=== PATIENT | female | born 1955 | race Caucasian/White ===

== ENCOUNTER → 2017-05-19 | Outpatient (CLI) | payer OTHER ==
[~2017-05-19] MED LIST: CELE10TA PO; COUM10TA PO; COUM2.5T17 PO; FERR325T3 PO; ISOS30TAB PO; PERC5TAB12 PO; RANO5TAB PO
[2017-05-19 10:54] LABS: MEAN CORPUSCULAR HEMOGLOBIN 31.3 pg (27.0-33.0); MEAN CORPUSCULAR HGB CONC 34.9 g/dl (32.0-36.5); MEAN CORPUSCULAR VOLUME 89.7 fl (80.0-96.0); RED CELL DISTRIBUTION WIDTH 12.3 % (11.5-14.5); WHITE BLOOD COUNT 3.9 K/mm3 (4.0-10.0)
[2017-05-19 10:59] LABS: INR 0.98
[2017-05-19 11:33] LABS: ALBUMIN 3.9 GM/DL (3.2-5.2); ALBUMIN/GLOBULIN RATIO 1.11 (1.00-1.93); ALKALINE PHOSPHATASE 89 U/L (45-117); ALT/SGPT 22 U/L (12-78); ANION GAP 5 MEQ/L (8-16); AST/SGOT 10 U/L (15-37); BILIRUBIN,TOTAL 0.4 MG/DL (0.2-1.0); BLOOD UREA NITROGEN 12 MG/DL (7-18); CALCIUM LEVEL 9.1 MG/DL (8.8-10.2); CARBON DIOXIDE LEVEL 31 MEQ/L (21-32); CHLORIDE LEVEL 106 MEQ/L (98-107); CREATININE FOR GFR 0.85 MG/DL (0.55-1.02); GLOMERULAR FILTRATION RATE > 60.0 (>45); GLUCOSE, FASTING 88 MG/DL (80-110); POTASSIUM SERUM 4.1 MEQ/L (3.5-5.1); SODIUM LEVEL 142 MEQ/L (136-145); TOTAL PROTEIN 7.4 GM/DL (6.4-8.2)
--- NOTE | 2017-05-19 16:11 | ECGEPIP ---
Stationary ECG Study [facility] Test Date: 2017-05-19 Pat Name: PHAN JAMES Department: Room: - Gender: F [employer] Supervisor: FRANKIE : 1955 Requested By: Gabriel Ramos Order Number: [id number] Reading MD: Mich Onofre Measurements Intervals [place] Rate: 44 P: 71 [place]: 141 QRS: 21 QRSD: 97 T: 30 QT: 477 QTc: 411 Interpretive Statements SINUS BRADYCARDIA MODERATE T-WAVE ABNORMALITY, CONSIDER ANTERIOR ISCHEMIA Low QRS complex voltage in the limb leads Similar to tracing done 07-07-15 with even lower rate Electronically Signed On 05-19-2017 16:11:40 EDT by Mich Onofre
--- NOTE | 2017-05-20 02:40 | REP ---
Clinical: Chest and epigastric pain with history of heart disease and gastritis . Comparison: 11/26/2014 . Technique: PA and lateral. Findings: The mediastinum and cardiac silhouette are normal. The lung frye are clear and without acute consolidation, effusion, or pneumothorax. The skeletal structures are intact and normal. Impression: 1. No acute cardiopulmonary process. Signed by Suresh Hwang MD 05/20/2017 02:32 A
== END ==
LOC: M ADMPAT 09:20
PROVIDERS: ATTEND Orthopaedic Surgery
DX: M17.11 Unilateral primary osteoarthritis, right knee (principal)

== ENCOUNTER 2017-06-02 07:08 | Inpatient (IN) | payer OTHER ==
[2017-05-19 09:56] VITALS: BP 142/80
--- NOTE | 2017-05-29 09:54 | HPE ---
DATE OF ADMISSION: 06/02/2017 ADMISSION DIAGNOSIS: Osteoarthritis right knee. ATTENDING PHYSICIAN: Dr. Duarte HISTORY: This is a pleasant 62-year-old female patient with progressively worsening right knee pain and stiffness. She failed to improve with conservative management. She has pain with weightbearing activities and activities of daily living. She has elected for surgery for continued symptoms. She has consented for a right total knee arthroplasty by Dr. Duarte. Medical optimization by Dr. Montero. X-rays notable for end-stage degenerative changes of the right knee. ALLERGIES: - KEFLEX - DARVON MEDICAL HISTORY (Includes): 1. Depression. 2. Allergic rhinitis. 3. Gastric reflux disease. 4. Osteoporosis. 5. Angina. 6. Osteoarthritis of both knees. PAST SURGICAL HISTORY (Includes): 1. Cardiac cath with stent placement. 2. Total hysterectomy. 3. Gallbladder removed. 4. Appendix removed. SOCIAL HISTORY: She does not smoke. She does not use alcohol. FAMILY HISTORY: Noncontributory. REVIEW OF SYSTEMS: Denies fever or chills. Denies chest pain, shortness breath or cough. Denies difficulty breathing. Denies abdominal pain. Denies nausea or vomiting. Notes persistent pain in her right knee with weightbearing activities and activities of daily living. PHYSICAL EXAMINATION: Reveals a well-nourished, well-developed, alert female patient. She walks with a slight limping gait favoring her right side. She does not use assistive devices. Exam of the right knee reveals the skin to be intact. No erythema, edema or ecchymosis. Irritability with knee range of motion on the right side. There is tenderness mainly medially. Patellar grind is irritable. The calf is soft and nontender to palpation. She can sensate light touch. Straight leg raise testing is negative. Neck is supple without adenopathy or jugular venous distention (JVD). Lungs are clear to auscultation without rales or wheeze. Heart: Rhythm regular rate and rhythm. Abdomen: Bowel sounds are present. Current Vital Signs: Weight 169 pounds, height 61 inches, temperature 98.2, pulse 48, respirations 12, blood pressure 130/80. CURRENT MEDICATIONS: - isosorbide dinitrate 30 mg 1 tablet once per day - Ranexa 500 mg 1 tablet twice per day - Citalopram 60 mg 1 tablet once per day LABORATORY DATA: Chest x-ray with no acute cardiopulmonary process noted. EKG sinus bradycardia. PT 13.1, INR 0.98, glucose 88, BUN 12, creatinine 0.85, sodium 142, potassium 4.1, WBC count 3.9, RBC count 4.4, hemoglobin 13.9, hematocrit 39.9. Urinalysis within normal limits. Urine culture no growth. Nasal sinus culture normal miguel. IMPRESSION: Symptomatic osteoarthritis of the right knee. PLAN: Consented for right total knee arthroplasty by Dr. Duarte.
[~2017-06-02] VITALS: Ht 154.9 cm; Wt 74.8 kg
[2017-06-02] VITALS (7 sets, daily range): BP systolic 136–148; BP diastolic 65–75
[~2017-06-02 07:08] MED LIST changes: -COUM10TA PO; -COUM2.5T17 PO; -FERR325T3 PO; -PERC5TAB12 PO
[2017-06-02] MEDS ORDERED: CLINDAMYCIN 600 MG in APPROPRIATE DILUENT 1 EA IV ONE (07:15)
[2017-06-02] MEDS ORDERED: LIDOCAINE 1% MDV 20ML VIAL SQ ONE (07:15)
[2017-06-02] MEDS ORDERED: VANCOMYCIN HCL 1,000 MG, VIAL MATE ADAPTER 1 EACH in D5W 250 ML IV ONE ×2 (07:15→20:00)
[2017-06-02] MEDS ORDERED: LR 1,000 ML IV ONE (07:15)
[2017-06-02] MEDS ORDERED: PREGABALIN 75 MG CAP(LYRICA) PO ONE (07:30)
[2017-06-02] MEDS ORDERED: CelecoXIB 400 MG CAP PO ONE (07:30)
[2017-06-02] MEDS ORDERED: PERCOCET 5MG/325MG TAB PO ONE (07:30)
[2017-06-02] MEDS ORDERED: COUM10TA PO (08:00)
[2017-06-02] MEDS ORDERED: dexameTHASONE 4 MG/ML 1ML VIAL (J1100) As Ordered ONE (09:22)
[2017-06-02] MEDS ORDERED: PROPOFOL 200 MG/20 ML VIAL As Ordered ONE (09:22)
[2017-06-02] MEDS ORDERED: ONDANSETRON 4MG/2ML VIAL (J2405) As Ordered ONE ×2 (09:22→12:56)
[2017-06-02] MEDS ORDERED: LIDOCAINE 2% INJ 100 MG/5 ML SDV (FOR ANES.) As Ordered ONE (09:22)
[2017-06-02] MEDS ORDERED: MIDAZOLAM INJ 2 MG/2 ML VIAL (J2250) As Ordered ONE ×3 (09:23→11:47)
[2017-06-02] MEDS ORDERED: fentaNYL 100 MCG/2 ML INJECTION (J3010) As Ordered ONE ×2 (09:23→09:29)
[2017-06-02] MEDS ORDERED: MIDAZOLAM INJ 2 MG/2 ML VIAL (J2250) IV ONE (10:15)
[2017-06-02] MEDS ORDERED: fentaNYL 100 MCG/2 ML INJECTION (J3010) IV ONE (10:15)
[2017-06-02] MEDS ORDERED: TRANEXAMIC ACID 100 MG/ML 10ML VIAL As Ordered ONE (11:03)
[2017-06-02] MEDS ORDERED: BUPIVACAINE/EPIN 0.25% 30 ML VIAL As Ordered ONE (11:03)
[2017-06-02] MEDS ORDERED: CLINDAMYCIN 900 MG/50 ML PREMIX BAG As Ordered ONE (11:03)
[2017-06-02] MEDS ORDERED: BUPIVACAINE LIPOSOME/PF 1.3% 20 ML VIAL (13.3MG/ML)(EXPAREL) As Ordered ONE (11:04)
[2017-06-02] MEDS ORDERED: EPINEPHrine INJ 1 MG/ML 1ML AMP As Ordered ONE (11:04)
[2017-06-02] MEDS ORDERED: GLYCOPYRROLATE INJ 0.2 MG/ML 2 ML VIAL As Ordered ONE (11:40)
[2017-06-02] MEDS ORDERED: ePHEDrine SULFATE 25 MG/5 ML(5MG/ML) SYRINGE As Ordered ONE (11:57)
[2017-06-02] MEDS ORDERED: ROPIvacaine 0.5% 30 ML INJECTION (J2795) ONE (13:27)
[2017-06-02] MEDS ORDERED: dexameTHASONE 10 MG/1 ML VIAL PRES.FREE (J1100) ONE (13:27)
[2017-06-02] MEDS ORDERED: fentaNYL 100 MCG/2 ML INJECTION (J3010) IV PRN (14:00)
[2017-06-02] MEDS: D5W/0.45% SODIUM CHLORIDE 1,000 ML IV SCH (14:00)
[2017-06-02] MEDS ORDERED: LR 1,000 ML IV SCH (14:00)
[2017-06-02] MEDS ORDERED: PERCOCET 5MG/325MG TAB PO PRN (14:15)
[2017-06-02] MEDS ORDERED: ACETAMINOPHEN TAB 650MG DOSE (2X325MG) PO PRN (14:15)
[2017-06-02] MEDS ORDERED: FLEET ENEMA PR PRN (14:15)
[2017-06-02] MEDS ORDERED: NORTRIPTYLINE 10 MG CAP PO PRN (14:15)
[2017-06-02] MEDS ORDERED: HYDROmorphone HCL 1 MG/ML SYRINGE (J1170) IV PRN ×2 (14:30)
[2017-06-02] MEDS ORDERED: CYCLOBENZAPRINE 10 MG TAB PO PRN (14:30)
--- NOTE | 2017-06-02 15:11 | CR ---
DATE OF CONSULTATION: 06/02/2017 This is a 62-year-old female status post right knee surgery by Dr. Duarte and hospitalist is consulted for medical management. HISTORY OF PRESENT ILLNESS: This is a 62-year-old female with a significant past medical history of coronary artery disease, angina, depression, gastroesophageal reflux disease (GERD), osteoporosis, rhinitis, who is status post right knee surgery by Dr. Duarte and hospitalist was consulted for medical management. The patient is resting comfortably in the postanesthesia care unit. Denies any nausea, shortness of breath, dizziness, chest pain, or any complaints. Tolerable pain. The patient states that she is supposed to be on baby aspirin but she does not take it. She was also to be on Coumadin, but has been off due to the surgical intervention. She was on reflux medicine, but that has been stopped and tried dietary changes, but feels that she may have to go back on medication. Otherwise, the patient denies any complaints or issues, resting comfortably in the PACU. REVIEW OF SYSTEMS: Ten-point review of systems negative other than those described in history of present illness. PAST MEDICAL HISTORY: Significant for: 1. Coronary artery disease. 2. Angina. 3. Depression. 4. Gastroesophageal reflux disease (GERD). 5. Osteoporosis. 6. Rhinitis. SURGICAL HISTORY: Includes: 1. Cholecystectomy. 2. Stomach vestibule, status post mesh repair. 3. Partial hysterectomy. 4. Tubal ligation. 5. Abdominal abscess times two, status post surgical intervention. 6. Appendectomy. 7. Bilateral knee surgery in the past. 8. Shoulder surgery in the past. SOCIAL HISTORY: The patient denies smoking, drinking or drug abuse. FAMILY MEDICAL HISTORY: Noncontributory due to the patient's age. ALLERGIES: KEFLEX, CEPHALOSPORIN, PROPOXYPHENE. MEDICATIONS: From home are as follows, it is listed that she takes: - Celexa 60 mg by mouth daily - isosorbide dinitrate 40 mg by mouth daily - Ranexa 500 mg by mouth daily - warfarin 10 mg, but that was stopped due to the surgery - aspirin, the patient does take 81 mg once a day but that has been stopped as well but is not listed PHYSICAL EXAMINATION: VITAL SIGNS: Temperature 97.6, heart rate of 66, respiratory rate of 18, blood pressure 148/72, saturating 95% on room air. HEENT: Normocephalic. No trauma. Inspection of the eyes, nose and throat normal. Pupils equal, round, and reactive to light and accommodation. Mucous moist. Neck is supple with no tracheal deviation. CARDIAC SLOAN: S1, S2. Regular rate and rhythm. Pulses present. LUNGS: Equal air entry. I did not hear any wheezes, rales or rhonchi. ABDOMEN: Soft, nontender. Bowel sounds present. EXTREMITIES: Lower extremities with sequential compression device (SCD) bilaterally. The patient is currently awake, alert, oriented times three. Cranial nerves grossly intact. Motor and sensory intact without limitation after surgery. The patient has normal mood and affect for current situation. Pleasant to speak to. DIAGNOSTIC STUDIES: The patient had blood work done on 05/16/2017 showing WBC of 3.9, hemoglobin and hematocrit within normal, platelet count is within normal. Complete metabolic profile is within normal except for AST of 10, cardiac enzymes within normal as well. TSH was within normal. Cholesterol studies within normal. Her vitamin D 25 OH was slightly low at 29.6. We will defer this to her primary care provider as an outpatient. Coagulation study at that time was all within normal but elevated D-dimer in 2009. The patient did have a V/Q scan in 2013, which was negative for pulmonary embolism. UA at that time, nitrate was negative, leukocyte esterase was negative, WBC was only 1, urine bacteria was 1. I suspect not symptomatic. The patient also had chest x-ray on 05/19/2017 of this year, which showed, as per radiology: No acute cardiopulmonary process. Coagulation studies: PT/INR is within normal on 05/19/2017, but the D-dimer was from 2009 and the patient had been evaluated by a V/Q scan in 2013 at the latest, which did not show any pulmonary embolism. ASSESSMENT AND PLAN: This is a 62-year-old female with a significant past medical history of coronary artery disease, angina, depression, gastroesophageal reflux disease (GERD), osteoporosis, and rhinitis who presents status post right knee surgery by Dr. Duarte. Hospitalist was consulted for medical management. 1. Right knee surgery by Dr. Duarte. Defer pain management and anticoagulant therapy to Dr. Duarte. 2. Coronary artery disease and angina. We will hold aspirin and Coumadin for now and defer reinitiation to Dr. Duarte and her primary care provider. In the interim, resume isosorbide and Ranexa. Denies any chest pain and is resting comfortably in the PACU at this time. 3. Depression. Resume Celexa. 4. History of GERD. The patient states that she is not on any antireflux medication and tried a diet, but may need to go back on medicine. We will initiate Protonix for now and defer further treatment to primary care provider. 5. The patient is resting comfortably, not tachycardic, not hypoxemic at this time. The patient had a positive D-dimer in 2009, but the last V/Q scan in 2013 was negative for pulmonary embolism. Again, the patient is not tachycardic, not hypoxemic. Continue to monitor. 6. Deep vein thrombosis (DVT) prophylaxis. As per surgery.
[2017-06-02] MEDS ORDERED: VECURONIUM BROMIDE 10 MG VIAL As Ordered ONE (15:26)
[2017-06-02] MEDS: CitaloPRAM (CeleXA) 20 MG TAB PO SCH (15:42)
[2017-06-02] MEDS: PANTOPRAZOLE 40MG TAB (PROTONIX) PO SCH (15:42)
[2017-06-02] MEDS: RANOLAZINE 500 MG ER TAB PO SCH (17:23)
[2017-06-02] MEDS: ISOSORBIDE DIN. (ISORDIL) 20 MG TAB PO SCH (17:23)
[2017-06-02] MEDS: PERCOCET 5MG/325MG TAB PO PRN (17:43)
[2017-06-02] MEDS: ONDANSETRON 4MG/2ML VIAL (J2405) IV PRN (17:43)
[2017-06-02] MEDS: ASCORBIC ACID 500 MG TAB PO SCH (19:46)
[2017-06-03] MEDS: D5W/0.45% SODIUM CHLORIDE 1,000 ML IV SCH
[2017-06-03] MEDS: ONDANSETRON 4MG/2ML VIAL (J2405) IV PRN (00:14)
[2017-06-03] MEDS ORDERED: FAMOTIDINE INJ 20MG/2ML VIAL (S0028) IVP ONE (00:30)
[2017-06-03] MEDS ORDERED: SUCRALFATE SUSP 1GM/10ML UD PO ONE (00:30)
[2017-06-03 01:45] LABS: MEAN CORPUSCULAR HEMOGLOBIN 30.9 pg (27.0-33.0); MEAN CORPUSCULAR HGB CONC 34.9 g/dl (32.0-36.5); MEAN CORPUSCULAR VOLUME 88.7 fl (80.0-96.0); RED CELL DISTRIBUTION WIDTH 12.2 % (11.5-14.5); WHITE BLOOD COUNT 7.8 K/mm3 (4.0-10.0)
[2017-06-03 02:00] VITALS: BP 126/63
[2017-06-03 02:11] LABS: ANION GAP 10 MEQ/L (8-16); BLOOD UREA NITROGEN 10 MG/DL (7-18); CALCIUM LEVEL 8.2 MG/DL (8.8-10.2); CARBON DIOXIDE LEVEL 25 MEQ/L (21-32); CHLORIDE LEVEL 103 MEQ/L (98-107); CREATININE FOR GFR 0.74 MG/DL (0.55-1.02); GLOMERULAR FILTRATION RATE > 60.0 (>45); GLUCOSE, FASTING 179 MG/DL (80-110); MAGNESIUM LEVEL 1.7 MG/DL (1.8-2.4); POTASSIUM SERUM 4.1 MEQ/L (3.5-5.1); SODIUM LEVEL 138 MEQ/L (136-145)
[2017-06-03] MEDS ORDERED: MAG SULF 1GM/100ML (MAG RUN) 1 GM in APPROPRIATE DILUENT 1 EA IV ONE (02:30)
[2017-06-03 06:00] VITALS: BP 117/57
[2017-06-03 06:59] LABS: INR 1.11
[2017-06-03 07:31] LABS: ANION GAP 10 MEQ/L (8-16); BLOOD UREA NITROGEN 11 MG/DL (7-18); CALCIUM LEVEL 8.1 MG/DL (8.8-10.2); CARBON DIOXIDE LEVEL 24 MEQ/L (21-32); CHLORIDE LEVEL 104 MEQ/L (98-107); CREATININE FOR GFR 0.66 MG/DL (0.55-1.02); FERRITIN 97 NG/ML (8-252); GLOMERULAR FILTRATION RATE > 60.0 (>45); GLUCOSE, FASTING 118 MG/DL (80-110); PERCENT SATURATION 18.8 % (13.2-45.0); POTASSIUM SERUM 4.4 MEQ/L (3.5-5.1); SODIUM LEVEL 138 MEQ/L (136-145); TOTAL IRON BINDING CAPACITY 234 UG/DL (250-450)
[2017-06-03 08:45] LABS: FOLATE 16.9 NG/ML (>5.4); VITAMIN B12 LEVEL 394 PG/ML (247-911)
--- NOTE | 2017-06-03 08:54 | RO ---
DATE OF PROCEDURE: 06/02/2017 PREOPERATIVE DIAGNOSIS: Right knee osteoarthritis. POSTOPERATIVE DIAGNOSIS: Right knee osteoarthritis. PROCEDURE PERFORMED: Right total knee replacement. SURGEON: Gabriel Duarte MD COMPILATION CLERK: CULLEN John ANESTHESIA: Spinal also block. ESTIMATED BLOOD LOSS : Less than 60. COMPLICATIONS: No complications. TOURNIQUET TIME: Tourniquet was utilized. Total tourniquet time 65 minutes at 250 mmHg. INDICATIONS: Progressive discomfort in the knee of a 62-year-old female with MRI, as well as plain film evidence of degenerative change through the knee. She has elected for operative intervention. Consent reviewed in detail, including alyson discussion of the pathology involved, procedure proposed, alternatives including doing nothing and risks including not limited to pain, failure, incomplete relief, need for more surgery, bleeding, blood clots, infection and other issues. The patient agrees to proceed. DESCRIPTION OF PROCEDURE: Identified in the holding area, site and side verified, brought to the operating room after the femoral block accomplished. In the operating room, she received spinal anesthesia and then was positioned for exposure of the right lower extremity for knee arthroplasty. Next, she was sterilely prepped and draped in the usual fashion for a knee replacement. We utilized sterile technique. Next, the right extremity was elevated, the tourniquet was inflated to 250 mmHg. Next, line of the incision had been outlined with a marking pen and infiltrated with 0.25% Marcaine with epinephrine. We then made the incision with the 10 blade knife, developed down through skin and subcuticular tissues to the extensor mechanism. Next, Mr. Segundo assisted in retraction. The arthrotomy was made with a 10 blade knife, a fresh knife. Next, the medial release was accomplished using the sharp knife. Infrapatellar fat pad was removed using a sharp knife and supracondylar soft tissue was removed to allow for side using the sharp knife. Next, the patella was able to be everted. The knee was flexed. The femoral canal was opened using the canal opening reamer and then the intramedullary guide was installed 10 mm at 5 degrees valgus. Next, once this was pinned into place, I placed the appropriate Hohmann retractors and Mr. Segundo used the oscillating saw to make the distal femoral cut. Next, I then placed the AP sizing guide, pinned at 3 degrees and we sized a 2.5 femoral component as template. Next, the 4 in 1 block was then pinned to the knee, and we made the anterior. posterior and chamfer cuts. Mr. Segundo assisted in protecting the collateral ligaments using the Hohmann. Next, bone debris was cleared. Posterior condylar area, we utilized and a curved osteotome to remove additional osteophyte material, especially posterior to the lateral femoral condyle. Next, attention was then turned to the tibial side of the knee. Extramedullary tibial alignment jig was secured based on the second metatarsal and the ankle joint. 3 degree block utilized, 4 mm off the medial side, jig was pinned into place. We verified alignment using the drop libby. Next, we then placed the posterior retractor and the Hohmann retractors, and I utilized the oscillating saw to make the tibial cut. Next, once this was accomplished, the knee was extended, and Mr. Segundo assisted installing the spacer block 10 mm, which fit appropriately in extension and the flexion block also fit appropriately in flexion. Next, once this was accomplished, we installed the femoral component and the tibial component with the 10 mm trial, placed through a range of motion and we marked rotational alignment of tibial component. Patella everted. Posterior patella cut made. We utilized a 32 mm button, which was drilled as well. The button tracked appropriately. Next, once this was accomplished, femoral posts were drilled in the medial and lateral femoral condyle through the guide. The trial components were then removed. Next, we subluxed the tibia anteriorly, placed the tibial alignment jig in the appropriate rotation, pinned it into place. We then placed the broach utilized the large set drill, followed by the tibial broach, which was tamped into place. Next, we then removed these components. Mr. Segundo stepped to the back table to prepare the cement. I utilized pulse lavage to prepare the knee surfaces, which were then dried. Next, once that Mr. Segundo placed cement on the posterior aspect of the femoral condyles, I then took the cement and placed cement on the tibial surface and implanted the tibial tray non trial component, cleared excess cement, implanted the nylon component 10 mm x 2.5 spacer. Next, we then placed cement on the distal femur and implanted the non trial femoral component. Excess cement cleared using curettes. Next, posterior patella was everted. Non trial patella was then cemented into place secured with clamp. Excess cement removed using curettes. Next, pulse lavage was utilized and we also exposed the knee to the TXA solution for one minute. Next, I instilled approximately 20 mL of the Exparel solution in the subcutaneous space around knee, as well as around the extensor mechanism of the knee for long-acting postoperative anesthetic. Next, pulse lavage again utilized. Next, once the cement had hardened to the appropriate consistency, patella clamp removed, arthrotomy was closed with interrupted stitch followed by running Stratafix stitch. Next, interrupted subcuticular stitches were then placed at the dermis level, followed by placement of the Prineo dressing. Next, please note that patella tracking was assessed at the time of the surgery. Patella tracking was adequate. Next, the tourniquet was inflated 65 minutes. Components used for this case include DePuy PFC System, cruciate sparing, 2.5 femoral component, 10 mm curved polyethylene component, fixed bearing, 2.5 tibial tray and 32 mm patella button, and the appropriate bone cement. Mr. Olegario Segundo was present and participated in the entirety case in the capacity of the first breaker feeder. LUDMILA
[2017-06-03] MEDS ORDERED: CelecoXIB (CeleBREX) 100 MG CAP PO ONE (09:00)
--- NOTE | 2017-06-03 09:47 | REP ---
AP/ LATERAL RIGHT KNEE, TWO VIEWS: HISTORY: Knee replacement. COMPARISON: 09/23/2012 The patient is status post right total knee replacement. There is no acute fracture or dislocation. A small amount of subcutaneous air is present in the overlying soft tissue. IMPRESSION: The patient is status post right total knee replacement. There is anatomic alignment. Signed by Gui Blanchard MD 06/03/2017 09:50 A
[2017-06-03 10:00] VITALS: BP 116/56
[2017-06-03] MEDS: SENOKOT S TAB PO SCH ×2 (10:40→20:15)
[2017-06-03] MEDS: CitaloPRAM (CeleXA) 20 MG TAB PO SCH (10:40)
[2017-06-03] MEDS: MIRALAX *UNIT DOSE* 17GM PACKET PO SCH (10:40)
[2017-06-03] MEDS: PANTOPRAZOLE 40MG TAB (PROTONIX) PO SCH (10:40)
[2017-06-03] MEDS: ASCORBIC ACID 500 MG TAB PO SCH ×2 (10:41→20:15)
[2017-06-03] MEDS: ISOSORBIDE DIN. (ISORDIL) 20 MG TAB PO SCH (10:41)
[2017-06-03] MEDS: RANOLAZINE 500 MG ER TAB PO SCH (10:41)
[2017-06-03] MEDS: PERCOCET 5MG/325MG TAB PO PRN ×3 (10:42→22:47)
[2017-06-03 14:00] VITALS: BP 90/59
[2017-06-03] MEDS ORDERED: WARFARIN SOD 5 MG TAB PO ONE (17:00)
[2017-06-03 22:00] VITALS: BP 110/54
[2017-06-04] MEDS: PERCOCET 5MG/325MG TAB PO PRN ×2 (05:16→09:59)
[2017-06-04 06:00] VITALS: BP 143/64
[2017-06-04] MEDS ORDERED: PERC5TAB12 PO (07:02)
[2017-06-04] MEDS ORDERED: COUM2.5T17 PO ×2 (07:02→08:18)
[2017-06-04 07:46] LABS: MEAN CORPUSCULAR HEMOGLOBIN 31.5 pg (27.0-33.0); MEAN CORPUSCULAR VOLUME 90.1 fl (80.0-96.0); RED CELL DISTRIBUTION WIDTH 12.5 % (11.5-14.5); WHITE BLOOD COUNT 5.3 K/mm3 (4.0-10.0)
[2017-06-04 07:54] LABS: ANION GAP 7 MEQ/L (8-16); BLOOD UREA NITROGEN 16 MG/DL (7-18); CALCIUM LEVEL 8.7 MG/DL (8.8-10.2); CARBON DIOXIDE LEVEL 28 MEQ/L (21-32); CHLORIDE LEVEL 106 MEQ/L (98-107); GLOMERULAR FILTRATION RATE > 60.0 (>45); GLUCOSE, FASTING 101 MG/DL (80-110); POTASSIUM SERUM 4.4 MEQ/L (3.5-5.1); SODIUM LEVEL 141 MEQ/L (136-145)
[2017-06-04 07:55] LABS: INR 1.02
[2017-06-04] MEDS ORDERED: CelecoXIB (CeleBREX) 100 MG CAP PO SCH (09:00)
[2017-06-04 09:57] VITALS: BP 143/64
[2017-06-04] MEDS: RANOLAZINE 500 MG ER TAB PO SCH (09:57)
[2017-06-04] MEDS: ISOSORBIDE DIN. (ISORDIL) 20 MG TAB PO SCH (09:57)
[2017-06-04] MEDS: SENOKOT S TAB PO SCH (09:58)
[2017-06-04] MEDS: PANTOPRAZOLE 40MG TAB (PROTONIX) PO SCH (09:58)
[2017-06-04] MEDS: ASCORBIC ACID 500 MG TAB PO SCH (09:58)
[2017-06-04] MEDS: MIRALAX *UNIT DOSE* 17GM PACKET PO SCH (10:00)
[2017-06-04] MEDS: CitaloPRAM (CeleXA) 20 MG TAB PO SCH (10:00)
[2017-06-04] MEDS ORDERED: FERR325T3 PO (10:50)
[2017-06-04] MEDS ORDERED: WARFARIN SOD 3 MG TAB PO ONE (17:00)
[2017-06-04] MEDS ORDERED: WARFARIN SOD 5 MG TAB PO ONE (17:00)
--- NOTE | 2017-06-04 22:07 | ECGEPIP ---
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
--- NOTE | 2017-06-06 12:07 | DSES ---
DATE OF ADMISSION: 06/02/2017 DATE OF DISCHARGE: 06/04/2017 ADMISSION DIAGNOSIS: Symptomatic right knee osteoarthritis. DISCHARGE DIAGNOSIS: Status post right total knee arthroplasty. HISTORY OF PRESENT ILLNESS: This a pleasant 62-year-old female with progressing symptomatic right knee osteoarthritis. She has consented for right total knee arthroplasty per Dr. Gabriel Duarte. Medical optimization per Dr. Montero. X-rays were consistent with advanced osteoarthritis. OPERATION PERFORMED: Right total knee arthroplasty. HOSPITAL COURSE: The patient uneventfully underwent right total knee arthroplasty under spinal with a knee block and was returned to recovery in excellent condition. Our hospital team felt comfortable discharging the patient on 06/04/2017 with the following instructions. Weightbearing as tolerated right lower extremity with a walker. Diet is regular. Percocet as needed for pain. Continue physiotherapy protocol per rehab. Optifoam dressing change in 4-[address] [facility] 12-14 days for a wound check and staple removal. The patient is encouraged to contact our office sooner with increased pain, redness, drainage, bleeding, numbness and tingling down the lower extremity, fever greater than 100 or any other further concerns. LUDMILA
== END 2017-06-04 15:58 | disposition home health service (06) | DRG 470 ==
LOC: M OR 07:08 → M MS5PR 14:40
PROVIDERS: ADMIT Orthopaedic Surgery; ATTEND Orthopaedic Surgery
PROC: 0SRC0J9 Replacement of Right Knee Joint with Synthetic Substitute, Cemented, Open Approach (ICD-10-PCS; principal; 2017-06-02 09:45)
DX: M17.11 Unilateral primary osteoarthritis, right knee (principal); K21.9 Gastro-esophageal reflux disease without esophagitis; F32.9 Major depressive disorder, single episode, unspecified; M81.0 Age-related osteoporosis without current pathological fracture; Z79.899 Other long term (current) drug therapy; I25.10 Atherosclerotic heart disease of native coronary artery without angina pectoris; Z88.8 Allergy status to other drugs, medicaments and biological substances

== ENCOUNTER 2017-09-17 06:53 | Inpatient (IN) | payer OTHER ==
[2017-09-03 09:53] VITALS: BP 142/80
--- NOTE | 2017-09-11 14:08 | HPE ---
DATE OF ADMISSION: 09/17/2017 She arrives today with continuing symptomatic left knee osteoarthritis. The patient has consented for left total knee arthroplasty per Dr. Gabriel Duarte. She has met with Dr. Montero for medical optimization note. She was cleared. That is hearsay, I have still not viewed this note. X-rays are consistent with advanced osteoarthritis. ALLERGIES: KEFLEX and DARVON. MEDICATIONS LIST INCLUDES: Coumadin 5 mg which she will take the evening before surgery. Mobic 7.5 mg which she is counseled to discontinue (DC) 4-5 days prior to surgery. Tylenol with Codeine #3 300-300 mg. Ferrous gluconate 324 (37.5 Fe) mg. Percocet 5-325 mg. Isosorbide dinitrate 30 mg. Ranexa 500 mg. Citalopram hydrobromide 60 mg. MEDICAL PROBLEM LIST: Symptomatic left knee osteoarthritis, heart disease, depression, gastritis. PAST SURGICAL HISTORY: Catheterization with stent placement, total hysterectomy, cholecystectomy, appendectomy and right knee replacement. FAMILY HISTORY: Positive for hypertension, heart disease. SOCIAL HISTORY: He is a former smoker, quit 24 years ago. Denies any alcohol intake or illicit drugs. REVIEW OF SYSTEMS: Denies chest pain, shortness breath, dyspnea on exertion, fever, chills, malaise, upper respiratory urinary tract symptoms. PHYSICAL EXAMINATION: Blood pressure 120/58. Pulse 56. Temperature 97.7. Height 62. Weight 160 pounds. BMI with 29.3. She is a pleasant overweight white female in no acute distress. Alert and oriented times three. Mood and affect are appropriate. She is ambulating slow steady with favoring of her right lower extremity. No assistive device or gross antalgia about the left, left knee benign noninfectious looking, not hot to touch. She has bilateral medial and lateral joint line tenderness to palpation with crepitance through flexion extension. Patellofemoral joint (PFJ) congruent static and dynamic, knee is stable collateral ligaments patellar quad tendons without palpable defects. She can do a straight leg raise. Left hip range of motion is not grossly limited or irritable through internal external range of motion. Otherwise benign noninfectious looking lower extremities. Bowel soft, nontender times four. Chest rises symmetrically. Regular rate and rhythm. Lungs clear to auscultation. Neck supple. Negative jugular venous distention (JVD) or bruits. Normocephalic. Labs were reviewed which showed carbon dioxide level of 33, anion gap 3. Blood urine blood 2+. Urine culture, nasal and sinus culture unremarkable. EKG sinus bradycardia as read by Dr. Rajendra Gillespie with moderate T-wave abnormality consider anterior ischemia. Chest x-ray, I did not have the report available to me but Dr. Montero's assessment clearance was noted and she is considered a at average risk for perioperative complications. Consent for surgery was signed noted on 06/17 which will meet the 90-day requirement. IMPRESSION: 1. Symptomatic left knee osteoarthritis. 2. Patient consented for a left total knee arthroplasty per Dr. Gabriel Duarte. 3. Medical optimization per Dr. Montero. 4. On-call to OR 600 mg IV Kefzol per history of Keflex allergy. 5. Sequential compression device (SCD) and thromboembolic deterrent stockings (TEDS) in operating room (OR).
[~2017-09-17] VITALS: Ht 154.9 cm; Wt 73.4 kg
[~2017-09-17 06:53] MED LIST changes: +COUM10TA PO; +COUM2.5T17 PO; +FERR325T3 PO; +PERC5TAB12 PO
[2017-09-17] MEDS ORDERED: LR 1,000 ML IV SCH ×2 (07:00→12:15)
[2017-09-17] MEDS ORDERED: PREGABALIN 75 MG CAP(LYRICA) PO ONE (07:00)
[2017-09-17] MEDS ORDERED: CLINDAMYCIN INJ 900MG/6ML VIAL As Ordered ONE (07:45)
[2017-09-17] MEDS ORDERED: TRANEXAMIC ACID 100 MG/ML 10ML VIAL As Ordered ONE (07:45)
[2017-09-17] MEDS ORDERED: BUPIVACAINE/EPIN 0.25% 30 ML VIAL As Ordered ONE (07:45)
[2017-09-17] MEDS ORDERED: BUPIVACAINE LIPOSOME/PF 1.3% 20 ML VIAL (13.3MG/ML)(EXPAREL) As Ordered ONE (07:45)
[2017-09-17] MEDS ORDERED: EPINEPHrine INJ 1 MG/ML 1ML AMP As Ordered ONE (07:45)
[2017-09-17] MEDS ORDERED: COUM1TAB17 PO (07:58)
[2017-09-17] MEDS ORDERED: MOBI4TAB PO (07:58)
[2017-09-17] MEDS ORDERED: fentaNYL 100 MCG/2 ML INJECTION (J3010) As Ordered ONE ×2 (08:35→09:59)
[2017-09-17] MEDS ORDERED: MIDAZOLAM INJ 2 MG/2 ML VIAL (J2250) As Ordered ONE ×2 (08:35→09:59)
[2017-09-17] MEDS ORDERED: CLINDAMYCIN 600 MG in APPROPRIATE DILUENT 1 EA IV ONE (09:00)
[2017-09-17] MEDS ORDERED: VANCOMYCIN HCL 1,000 MG, VIAL MATE ADAPTER 1 EACH in D5W 250 ML IV ONE ×2 (09:00→22:00)
[2017-09-17] MEDS: MIDAZOLAM INJ 2 MG/2 ML VIAL (J2250) IV PRN ×2 (09:06→09:09)
[2017-09-17] MEDS ORDERED: fentaNYL 100 MCG/2 ML INJECTION (J3010) IV PRN ×2 (09:45→12:15)
[2017-09-17] MEDS ORDERED: PROPOFOL 200 MG/20 ML VIAL As Ordered ONE (09:59)
[2017-09-17] MEDS ORDERED: ePHEDrine SULFATE 25 MG/5 ML(5MG/ML) SYRINGE As Ordered ONE (09:59)
[2017-09-17] MEDS ORDERED: LIDOCAINE 2% INJ 100 MG/5 ML SDV (FOR ANES.) As Ordered ONE (09:59)
[2017-09-17] MEDS ORDERED: ONDANSETRON 4MG/2ML VIAL (J2405) IV PRN (12:15)
[2017-09-17] MEDS ORDERED: CelecoXIB (CeleBREX) 100 MG CAP PO ONE (12:30)
[2017-09-17] MEDS ORDERED: HYDROmorphone HCL 1 MG/ML SYRINGE (J1170) IV PRN ×2 (12:30)
[2017-09-17] MEDS ORDERED: PERCOCET 5MG/325MG TAB PO PRN (12:30)
[2017-09-17] MEDS ORDERED: FLEET ENEMA PR PRN (12:45)
[2017-09-17] MEDS ORDERED: ACETAMINOPHEN TAB 650MG DOSE (2X325MG) PO PRN (12:45)
[2017-09-17] MEDS ORDERED: PROMETHAZINE INJ 25 MG/ML VIAL (J2550) IV PRN (12:45)
[2017-09-17 13:45] VITALS: BP 138/66
[2017-09-17] MEDS: D5W/LR 1,000 ML IV SCH (14:36)
[2017-09-17] MEDS: PANTOPRAZOLE 40MG TAB (PROTONIX) PO SCH (14:36)
[2017-09-17] MEDS: FERROUS SULFATE 325MG TAB PO SCH ×2 (14:36→20:02)
[2017-09-17] MEDS: RANOLAZINE 500 MG ER TAB PO SCH ×2 (14:36→20:02)
[2017-09-17 14:45] VITALS: BP 136/72
--- NOTE | 2017-09-17 15:24 | REP ---
Clinical: Status post knee replacement. Technique AP and cross-table lateral views. Findings: The patient is status post left knee replacement with normal positioning and appearance to the femoral and tibial components. Overlying postsurgical changes appreciated. Impression: Status post left knee replacement. Signed by Suresh Hwang MD 09/17/2017 03:16 P
[2017-09-17] MEDS: PERCOCET 5MG/325MG TAB PO PRN (15:35)
[2017-09-17 15:45] VITALS: BP 133/68
--- NOTE | 2017-09-17 16:19 | REP ---
Clinical: Status post knee replacement. Technique AP and cross-table lateral views. Findings: The patient is status post left knee replacement with normal positioning and appearance to the femoral and tibial components. Overlying postsurgical changes appreciated. Impression: Status post left knee replacement. Signed by Suresh Hwang MD 09/17/2017 04:10 P
--- NOTE | 2017-09-17 16:21 | CR ---
DATE OF CONSULTATION: 09/17/2017 CONSULTATION REPORT FOR: Dr. Gabriel Duarte REASON FOR CONSULTATION: Medical management. HISTORY OF PRESENT ILLNESS: The patient is a 62-year-old female with a past medical history significant for chronic chest pain, anxiety/depression, gastroesophageal reflux disease, osteoporosis, allergic rhinitis who presented to [facility] on 09/17/2017 for a left total knee replacement. Surgery was performed by Dr. Gabriel Duarte. The patient tolerated the procedure well. No complications. Hospitalist team is called to assist in medical management. PAST MEDICAL HISTORY: 1. 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 2. Anxiety/depression. 3. Gastroesophageal reflux disease. 4. Degenerative joint disease. 5. Osteoporosis. 6. Allergic rhinitis. PAST SURGICAL HISTORY: 1. Appendectomy. 2. Cholecystectomy. 3. Hysterectomy. 4. Hernia repair. 5. Carpal tunnel release. 6. Right rotator cuff repair. SOCIAL HISTORY: The patient used to smoke for one year and quit 27 years ago. Denies alcohol use. Denies recreational drug use. REVIEW OF SYSTEMS: GENERAL: No fever. No chills. HEENT: No vision changes. No auditory changes. CARDIOVASCULAR: No chest pain. No palpitations. RESPIRATORY: No shortness of breath. No cough. No sputum production. GASTROINTESTINAL: No nausea. No vomiting. No abdominal pain. No diarrhea. MUSCULOSKELETAL: The patient just had a left total knee replacement. The patient has degenerative disc disease and osteoporosis at the baseline. NEUROLOGICAL: No numbness. No tingling. OBJECTIVE: VITAL SIGNS: Temperature is 97, pulse is 76, respiratory rate 16, blood pressure is 121/74, pulse oximetry is 97% with two liters nasal cannula. GENERAL: No sign of acute distress, fatigued, alert and oriented times three. HEENT: Normocephalic, atraumatic. Extraocular motor grossly intact. CARDIOVASCULAR: Positive S1, S2, regular rate. LUNGS: Clear to auscultation bilaterally. ABDOMEN: Soft, nontender, nondistended. Bowel sounds present. No rebound. No guarding. EXTREMITIES: Thromboembolic-deterrent stockings (TEDS), sequential in place. No significant swelling noted. Compression stockings in place. NEUROLOGIC: Sensation to fine touch grossly intact. LABORATORY DATA: From 09/03/2017, showed WBC 5.7, hemoglobin is 13.6, hematocrit 40.4, platelet count is 302. Sodium is 140, potassium 4, chloride is 104, carbon dioxide 33, BUN 11, creatinine 0.73, GFR greater than 60, fasting glucose 90, calcium is 9.1. AST is 15, ALT 21, alkaline phosphatase is 95, total protein 7.2. ASSESSMENT AND PLAN: 1. Left total knee replacement. We will refer the pain management, diet, activity level, and anticoagulation to primary orthopedic team. 2. Chronic chest pain. The patient had an extensive workup in 2013 at . Per the patient, cardiac catheterization was negative. The patient was believed to have microvascular angina. The patient is started on the Ranexa and Imdur for symptomatic control. 3. Gastroesophageal reflux disease. The patient is on oral Protonix. 4. Anxiety/depression, on Celexa. 5. Osteoporosis. 6. History of allergic rhinitis, asymptomatic at this moment. 7. Deep vein thrombosis (DVT) prophylaxis. The patient has thromboembolic-deterrent stockings (TEDS) and sequential compression device.
[2017-09-17 16:45] VITALS: BP 135/66
[2017-09-17] MEDS ORDERED: WARFARIN SOD 1 MG TAB PO ONE (17:00)
[2017-09-17] MEDS ORDERED: WARFARIN SOD 2.5 MG TAB PO ONE (17:00)
[2017-09-17 17:45] VITALS: BP 131/63
[2017-09-17 22:00] VITALS: BP 111/63
[2017-09-18] MEDS: D5W/LR 1,000 ML IV SCH ×2 (00:15→10:30)
[2017-09-18] MEDS: PERCOCET 5MG/325MG TAB PO PRN ×4 (01:53→19:55)
[2017-09-18 02:00] VITALS: BP 115/65
[2017-09-18 06:00] VITALS: BP 113/61
[2017-09-18 07:29] LABS: MEAN CORPUSCULAR HEMOGLOBIN 30.1 pg (27.0-33.0); MEAN CORPUSCULAR HGB CONC 33.5 g/dl (32.0-36.5); MEAN CORPUSCULAR VOLUME 89.6 fl (80.0-96.0); PLATELET COUNT, AUTOMATED 193 10^3/uL (150-450); RED CELL DISTRIBUTION WIDTH 11.8 % (11.5-14.5); WHITE BLOOD COUNT 8.1 10^3/uL (4.0-10.0)
[2017-09-18 07:43] LABS: INR 1.17
[2017-09-18 07:52] LABS: ANION GAP 6 MEQ/L (8-16); BLOOD UREA NITROGEN 9 MG/DL (7-18); CALCIUM LEVEL 8.5 MG/DL (8.8-10.2); CARBON DIOXIDE LEVEL 28 MEQ/L (21-32); CHLORIDE LEVEL 106 MEQ/L (98-107); CREATININE FOR GFR 0.66 MG/DL (0.55-1.02); GLOMERULAR FILTRATION RATE > 60.0 (>45); GLUCOSE, FASTING 148 MG/DL (80-110); MAGNESIUM LEVEL 1.7 MG/DL (1.8-2.4); POTASSIUM SERUM 4.3 MEQ/L (3.5-5.1); SODIUM LEVEL 140 MEQ/L (136-145)
[2017-09-18] MEDS: MIRALAX *UNIT DOSE* 17GM PACKET PO SCH (08:08)
[2017-09-18] MEDS: MOM 30ML SUSPENSION UDC PO SCH (08:08)
[2017-09-18] MEDS: PANTOPRAZOLE 40MG TAB (PROTONIX) PO SCH (08:09)
[2017-09-18] MEDS: FERROUS SULFATE 325MG TAB PO SCH ×2 (08:09→19:55)
[2017-09-18] MEDS: CelecoXIB (CeleBREX) 100 MG CAP PO SCH (08:09)
[2017-09-18] MEDS: RANOLAZINE 500 MG ER TAB PO SCH ×2 (08:09→19:55)
[2017-09-18] MEDS: CitaloPRAM (CeleXA) 20 MG TAB PO SCH (08:09)
[2017-09-18] MEDS: ISOSORBIDE DIN. (ISORDIL) 20 MG TAB PO SCH (08:09)
[2017-09-18 10:00] VITALS: BP 112/60
[2017-09-18 14:00] VITALS: BP 114/58
[2017-09-18] MEDS ORDERED: WARFARIN SOD 5 MG TAB PO ONE (17:00)
--- NOTE | 2017-09-18 17:13 | IPNPDOC ---
Text Note Date of Service The patient was seen on 09/18/17. NOTE SUBJECTIVE: Patient is seen and examed in the room today. Denies any acute complaint. No overnight event is reported. Patient has good oral intake. Mild discomfort during ambulation but the pain is manageable. OBJECTIVE: VITAL SIGNS: Listed below. GENERAL: No sign of acute distress, fatigued, alert and oriented times three. HEENT: Normocephalic, atraumatic. Extraocular motor grossly intact. CARDIOVASCULAR: Positive S1, S2, regular rate. LUNGS: Clear to auscultation bilaterally. ABDOMEN: Soft, nontender, nondistended. Bowel sounds present. No rebound. No guarding. EXTREMITIES: Thromboembolic-deterrent stockings (TEDS), sequential in place. No significant swelling noted. Compression stockings in place. LABORATORY DATA: Listed Below. ASSESSMENT AND PLAN: 1. Left total knee replacement. Today is post-op day 1. We will refer the pain management, diet, activity level, and anticoagulation to primary orthopedic team. Encourage frequent use of incentive spirometry. 2. Chronic chest pain. The patient had an extensive workup in 2013 at [facility]. Per the patient, cardiac catheterization was negative. The patient was believed to have microvascular angina. The patient is started on the Ranexa and Imdur for symptomatic control. 3. Gastroesophageal reflux disease. The patient is on oral Protonix. 4. Anxiety/depression, on Celexa. 5. Osteoporosis. 6. History of allergic rhinitis, asymptomatic at this moment. 7. Deep vein thrombosis (DVT) prophylaxis. The patient has thromboembolic-deterrent stockings (TEDS) and sequential compression device. VS,Fishbone, I+O VS, Fishbone, I+O Laboratory Tests 09/18/17 07:05 Red Blood Count 3.56 L, Mean Corpuscular Volume 89.6, Mean Corpuscular Hemoglobin 30.1, Mean Corpuscular Hemoglobin Concent 33.5, Red Cell Distribution Width 11.8, Calcium Level 8.5 L Vital Signs Date Time Temp Pulse Resp B/P (MAP) Pulse Ox O2 Delivery O2 Flow Rate FiO2 09/18/17 14:00 98.5 69 18 114/58 (76) 90 Room Air 09/17/17 12:15 2 I&O- Last 24 Hours up to 6 AM 09/19/17 06:00 Intake Total 1020 ml Balance 1020 ml CHAITANYA HILL DO Sep 18, 2017 17:13
[2017-09-18 22:00] VITALS: BP 136/64
[2017-09-19] MEDS: PERCOCET 5MG/325MG TAB PO PRN ×2 (03:17→08:50)
[2017-09-19 06:00] VITALS: BP 133/76
[2017-09-19 06:38] LABS: MEAN CORPUSCULAR HEMOGLOBIN 30.4 pg (27.0-33.0); MEAN CORPUSCULAR HGB CONC 32.7 g/dl (32.0-36.5); MEAN CORPUSCULAR VOLUME 92.9 fl (80.0-96.0); PLATELET COUNT, AUTOMATED 187 10^3/uL (150-450); RED CELL DISTRIBUTION WIDTH 12.2 % (11.5-14.5); WHITE BLOOD COUNT 6.3 10^3/uL (4.0-10.0)
[2017-09-19 06:47] LABS: INR 1.3
[2017-09-19 06:52] LABS: ANION GAP 4 MEQ/L (8-16); BLOOD UREA NITROGEN 18 MG/DL (7-18); CALCIUM LEVEL 8.4 MG/DL (8.8-10.2); CARBON DIOXIDE LEVEL 31 MEQ/L (21-32); CHLORIDE LEVEL 104 MEQ/L (98-107); CREATININE FOR GFR 0.79 MG/DL (0.55-1.02); GLOMERULAR FILTRATION RATE > 60.0 (>45); GLUCOSE, FASTING 93 MG/DL (80-110); MAGNESIUM LEVEL 1.9 MG/DL (1.8-2.4); POTASSIUM SERUM 4.7 MEQ/L (3.5-5.1); SODIUM LEVEL 139 MEQ/L (136-145)
[2017-09-19] MEDS ORDERED: PERC5TAB12 PO (07:25)
[2017-09-19] MEDS ORDERED: COUM2.5T17 PO (07:25)
[2017-09-19] MEDS: CitaloPRAM (CeleXA) 20 MG TAB PO SCH (08:49)
[2017-09-19] MEDS: RANOLAZINE 500 MG ER TAB PO SCH (08:49)
[2017-09-19] MEDS: MOM 30ML SUSPENSION UDC PO SCH (08:49)
[2017-09-19] MEDS: CelecoXIB (CeleBREX) 100 MG CAP PO SCH (08:49)
[2017-09-19 08:50] VITALS: BP 133/76
[2017-09-19] MEDS: ISOSORBIDE DIN. (ISORDIL) 20 MG TAB PO SCH (08:50)
[2017-09-19] MEDS: PANTOPRAZOLE 40MG TAB (PROTONIX) PO SCH (08:50)
[2017-09-19] MEDS: FERROUS SULFATE 325MG TAB PO SCH (08:50)
[2017-09-19] MEDS: MIRALAX *UNIT DOSE* 17GM PACKET PO SCH (09:00)
--- NOTE | 2017-09-19 15:19 | IPN ---
DATE: 09/19/2017 SUBJECTIVE: The patient is seen and examined in the room today. The patient is sitting comfortably in bed without any acute complaints. Still feels discomfort from the surgical site, but the pain is manageable. Tolerating the diet well. No overnight events reported. OBJECTIVE: VITAL SIGNS: Temperature 98, pulse 66, respirations 18, blood pressure is 133/76. Pulse oximetry is 96% on room air. GENERAL: No sign of acute distress. Alert and oriented times three. HEENT: Normocephalic, atraumatic. Extraocular motor grossly intact. CARDIOVASCULAR: Positive S1, S2. Regular rate. LUNGS: Clear to auscultation bilaterally. ABDOMEN: Soft, nontender, nondistended. Bowel sounds present, no rebound or guarding. EXTREMITIES: Thromboembolism deterrent stockings (TEDs) sequential in place. LABORATORY DATA: WBC is 6.3, hemoglobin 9.9, hematocrit 30.3, platelet count 187. Sodium 139, potassium 4.7, chloride 104, carbon dioxide 31, BUN 18, creatinine 0.79, GFR greater than 60, fasting glucose of 93, calcium 8.4, magnesium 1.9. ASSESSMENT AND PLAN: 1. Left total knee replacement. Today is postoperative day two. The patient's case was discussed with orthopedic team. The patient will be discharged today. 2. Chronic chest pain. The patient had an extensive workup done in 2013, in [facility]. Per patient, the cardiac catheterization was negative. The patient was believed to have microvascular angina. The patient has been on Ranexa and Imdur for symptomatic control. 3. Gastroesophageal reflux disease on oral Protonix. 4. Anxiety/depression. On Celexa. 5. Osteoporosis. 6. History of allergic rhinitis. 7. Deep venous thrombosis (DVT) prophylaxis. The patient on TEDs and sequential. The patient will be discharged home today.
--- NOTE | 2017-09-21 08:07 | RO ---
DATE OF SURGERY: 09/17/2017 PREOPERATIVE DIAGNOSIS: Left knee osteoarthritis. POSTOPERATIVE DIAGNOSIS: Left knee osteoarthritis. Same PROCEDURE PERFORMED: Left total knee replacement, cruciate sparing, cemented. SURGEON: Gabriel Duarte MD SOD FARMER: Jennifer Galindo PA-C ANESTHESIA: Spinal with block. ESTIMATED BLOOD LOSS: Less than 50 mL, replaced with crystalloid. COMPLICATIONS: None. Tourniquet was inflated 250 mmHg for 67 minutes total. COMPONENTS USED: Include DePuy PFC SIGMA system size 2.5 femoral component, size 2.5 tibial component, size 10 mm cruciate sparing polyethylene insert, size 28 mm patellar button and methyl methacrylate bone cement. Consent was reviewed in detail with patient prior to the course of the procedure, involved a alyson discussion of the pathology involved, procedure proposed, alternatives including doing nothing, and risks, including but not limited to, pain, failure, bleeding, blood clots, infection, need for more surgery, incomplete relief of symptoms, and other issues. The patient agrees to proceed. DESCRIPTION OF OPERATION: Operative course: Identified in the holding area, site, side verified, brought to the operating room. The block was accomplished. Spinal anesthesia was administered. Patient positioned for exposure of the left knee for arthroplasty. Tourniquet was high on the left thigh. Next, once she was sterilely prepped and draped in the usual fashion and I and the windows security analyst were comfortable with patient's positioning, we began the procedure. Mateo provided paralegal assistant as a senior sales assistant. The leg was elevated. Tourniquet was inflated to 250 mmHg. The line of the incision outlined with marking pen, infiltrated with 0.25% Marcaine with epinephrine, made with 10-blade knife, developed down through skin, subcuticular tissues, to the extensor mechanism. Once the extensor mechanism was exposed, I made a standard medial parapatellar arthrotomy with a knife. I removed the infrapatellar fat pad. I accomplished a modest medial release as the patient did not have a severe deformity. I removed the supracondylar synovial fat pad to allow sizing. Patella everted. Knee flexed. Femoral canal opening reamer was utilized followed by the distal femoral cutting guide, 3 degrees valgus. Shimmed into place. Intramedullary guide removed. The distal cut was then implemented by Physician Door To Door Selling Agent Mateo, and then I did verify the distal cut. Next, jig was removed. The AP sizing guide was applied predicting a size 2.5. 3 degree rotation jig applied and pinned. Pins were left in place. 4-in-1 cutting block installed over the pins and secured using threaded pin. Next, the oscillating saw was utilized to make anterior, posterior, and chamfer cuts. These guides were removed. Attention was turned to the tibial side. Extramedullary alignment guide was utilized, 4 mm off the medial compartment was utilized. The jig was pinned in neutral alignment at the tibia. Next, the external alignment jig apparatus was removed, pins were left in place. The cutting guide was installed. The drop libby was utilized to verify alignment and slope. I then placed the appropriate Usama retractors to protect collateral ligaments and posterior retractor, and I utilized the oscillating saw to make the tibial cut. Next, hot knife was then used to remove the proximal tibia protecting the posterior cruciate ligament. Next, the gap sizing blocks were utilized predicting a size 10 mm in both flexion and extension. Next, once this was accomplished, trial femoral component was installed, trial tibial component was installed, placed knee through a range of motion. Rotational alignment of the tibial component was then marked. Patella was everted. Posterior patellar cut was made with an oscillating saw, sized for a 32 mm posterior patellar button. Patellar cutting guide was installed, clamped into place. Step drill was utilized to drill the posterior patella. Patella trial was installed. Knee was placed in a range of motion. Patellofemoral tracking was excellent. Next, the trial components were then removed. Trial tibial base plate was installed, pinned into place in the marked rotational alignment, and the tibial jigs, drill, and broach were then utilized to prepare the proximal tibia. Once this was accomplished, Physician Assistant Galindo stepped to the back table to prepare the bone cement while I irrigated the knee with pulse lavage and prepared the surfaces. Next, once this was accomplished, I cemented the tibial component into place, cleared excess cement using curettes, installed the non-trial polyethylene 10 mm, then installed the femoral component, which was tamped into place and then excess cement cleared. The knee was placed in the extended position, patella everted. Patellar button was installed cementing it into place using clamp device. Excess cement cleared using curettes. I inspected the cement mantle and cement cured, made sure that excess cement was cleared with curettes. Next, pulse lavage irrigation was accomplished. The capital TXA solution was then placed in the knee and allowed stand for approximately 1 minute. Next, we then obtained the Exparel Marcaine mixture. This was injected in the soft tissues and the extensor mechanism, and the soft tissues around the knee. Once this was accomplished, pulse lavage was again accomplished. The arthrotomy was closed using interrupted stitch as well as a running STRATAFIX stitch. The deep dermis was approximated using interrupted stitch, and a Prineo dressing was utilized. Closure of skin with the knee in the 45 degree flexed position. Next, tourniquet was deflated at 67 minutes. Patient was moved to the recovery room in good condition. For further details, please refer to the medical record. Ms. Galindo was present and participated in the case in its entirety in the capacity of senior sales assistant.
--- NOTE | 2017-09-22 10:56 | DSES ---
DATE OF ADMISSION: 09/17/2017 DATE OF DISCHARGE: 09/19/2017 ATTENDING PHYSICIAN: Dr. Gabriel Duarte ADMITTING DIAGNOSIS: Left knee osteoarthritis. OTHER DIAGNOSES: Heart disease, depression, gastritis. DISCHARGE DIAGNOSIS: Left knee osteoarthritis status post left total knee arthroplasty. HISTORY: Patient is a 62-year-old female with continuing symptomatic left knee osteoarthritis. She failed to improve with conservative measures so she consented for an elective left total knee arthroplasty with Dr. Duarte. OPERATION PERFORMED: Left total knee arthroplasty. HOSPITAL COURSE: The patient underwent a left total knee arthroplasty under spinal anesthesia which was uneventful. Her hospital course was without complication and she was up with physical therapy per their protocol. Weightbearing is tolerated on the left lower extremity. Patient was discharged on oral pain medications and will resume her preoperative medications and diet. She will use her thromboembolic deterrent stockings and continue her Coumadin for 30 days postoperatively to prevent deep venous thrombosis. She will followup in our office in 12-14 days for wound check. She is encouraged to contact our office sooner if there is any increased pain, drainage, redness, numbness and tingling in the extremity, fever greater than 101 degrees or any other concerns. Please seen medical record for additional details. MTDD
== END 2017-09-19 13:00 | disposition home health service (06) | DRG 470 ==
LOC: M OR 06:53 → M MS5PR 13:00
PROVIDERS: ADMIT Orthopaedic Surgery; ATTEND Orthopaedic Surgery
PROC: 0SRD0J9 Replacement of Left Knee Joint with Synthetic Substitute, Cemented, Open Approach (ICD-10-PCS; principal; 2017-09-17 09:15)
DX: M17.12 Unilateral primary osteoarthritis, left knee (principal); F32.9 Major depressive disorder, single episode, unspecified; Z88.5 Allergy status to narcotic agent; Z88.8 Allergy status to other drugs, medicaments and biological substances; Z87.891 Personal history of nicotine dependence; K21.9 Gastro-esophageal reflux disease without esophagitis; F41.9 Anxiety disorder, unspecified; I20.9 Angina pectoris, unspecified

== ENCOUNTER → 2017-09-25 | Outpatient (REF) | payer OTHER ==
[~2017-09-25] MED LIST changes: +COUM1TAB17 PO; +MOBI4TAB PO
[2017-09-25 16:04] LABS: INR 1.08
== END ==
LOC: M SHH 15:09
PROVIDERS: ATTEND Nurse Practitioner Family
DX: Z79.01 Long term (current) use of anticoagulants (principal)

== ENCOUNTER → 2017-09-29 | Outpatient (REF) | payer OTHER ==
[~2017-09-29] MED LIST changes: +CELE50CA PO
[2017-09-29 16:15] LABS: INR 1.52
== END ==
LOC: M SHH 15:24
PROVIDERS: ATTEND Nurse Practitioner Family
DX: Z51.81 Encounter for therapeutic drug level monitoring (principal); Z79.01 Long term (current) use of anticoagulants

== ENCOUNTER → 2017-10-02 | Outpatient (REF) | payer OTHER ==
[2017-10-02 14:24] LABS: INR 1.92
== END ==
LOC: M SHH 13:58
PROVIDERS: ATTEND Nurse Practitioner Family
DX: Z79.01 Long term (current) use of anticoagulants (principal)

== ENCOUNTER 2017-10-06 10:00 | Emergency (ER) | payer OTHER ==
[~2017-10-06] VITALS: Ht 154.9 cm; Wt 72.7 kg
[~2017-10-06 10:00] MED LIST changes: -CELE50CA PO
[2017-10-06] MEDS ORDERED: CELE50CA PO (10:12)
[2017-10-06] MEDS ORDERED: COUM1TAB17 PO (10:12)
[2017-10-06 11:34] LABS: INR 2.01
--- NOTE | 2017-10-06 11:49 | REP ---
Left lower extremity deep vein duplex ultrasound: The deep veins demonstrate normal compression, normal Doppler color flow and normal Doppler waveforms with respiration and augmentation from the popliteal vein to the common femoral vein. There is a Chanel's cyst measuring 1.9 by 1.0 x 0.4 cm. Impression: There is no deep vein thrombus of the left lower extremity. There is a Chanel's cyst measuring 1.9 x 8, 1.0 x 0.4 cm. Signed by Josiah Klein MD 10/06/2017 11:40 A
[2017-10-06 12:01] LABS: ANION GAP 9 MEQ/L (8-16); BLOOD UREA NITROGEN 10 MG/DL (7-18); CALCIUM LEVEL 9.2 MG/DL (8.8-10.2); CARBON DIOXIDE LEVEL 24 MEQ/L (21-32); CHLORIDE LEVEL 107 MEQ/L (98-107); CREATININE FOR GFR 0.77 MG/DL (0.55-1.02); GLOMERULAR FILTRATION RATE > 60.0 (>45); GLUCOSE, FASTING 95 MG/DL (80-110); POTASSIUM SERUM 3.9 MEQ/L (3.5-5.1); SODIUM LEVEL 140 MEQ/L (136-145)
[2017-10-06 12:19] VITALS: BP 146/73
== END 2017-10-06 12:21 | disposition home or self-care (01) ==
LOC: M ED 10:00
DX: S83.8X2A Sprain of other specified parts of left knee, initial encounter (principal); Z87.891 Personal history of nicotine dependence; X58.XXXA Exposure to other specified factors, initial encounter; Y92.89 Other specified places as the place of occurrence of the external cause; Y93.89 Activity, other specified; Y99.9 Unspecified external cause status

== ENCOUNTER → 2017-10-09 | Outpatient (REF) | payer OTHER ==
[~2017-10-09] MED LIST changes: +CELE50CA PO
[2017-10-09 11:08] LABS: INR 2.24
== END ==
LOC: M SHH 10:35
PROVIDERS: ATTEND Nurse Practitioner Family
DX: Z51.81 Encounter for therapeutic drug level monitoring (principal); Z79.01 Long term (current) use of anticoagulants

== ENCOUNTER → 2017-10-13 | Outpatient (REF) | payer OTHER ==
[2017-10-13 14:18] LABS: INR 1.36
== END ==
LOC: M SHH 13:54
PROVIDERS: ATTEND Nurse Practitioner Family
DX: Z79.01 Long term (current) use of anticoagulants (principal)

== ENCOUNTER → 2018-01-13 | Outpatient (CLI) | payer OTHER ==
[2018-01-13 09:22] LABS: TOTAL 25(OH) VITAMIN D 22.1 NG/ML (30.0-100.0)
[2018-01-13 09:23] LABS: CHOLESTEROL LEVEL 184 MG/DL (<200); CHOLESTEROL RISK RATIO 2.787 (<5); FREE T4 0.96 NG/DL (0.76-1.46); HDL CHOLESTEROL 66 MG/DL (>40); LDL CHOLESTEROL 90.4 MG/DL (<100); NON-HDL-C 118 MG/DL; TRIGLYCERIDES LEVEL 138 MG/DL (<150)
== END ==
LOC: M LAB 08:07
DX: E55.9 Vitamin D deficiency, unspecified (principal); R63.4 Abnormal weight loss; E78.5 Hyperlipidemia, unspecified

== ENCOUNTER 2018-05-07 07:23 | Day surgery (SDC) | payer OTHER ==
[2018-05-07] MEDS: CEFUROXIME 1MG/0.1ML INTRACAMERAL INJ As Ordered (06:38)
[2018-05-07] MEDS ORDERED: LIDOCAINE 1% MDV 20ML VIAL SQ (07:30)
[2018-05-07] MEDS: PROPARACAINE 0.5% OPHTH SOL 15ML OS (07:50)
[2018-05-07] MEDS: TROPICAMIDE 1% OPHTH SOLN 2ML OS (07:50)
[2018-05-07] MEDS: OFLOXACIN 0.3 % (OCUFLOX) OPTH SOL 5ML OS (07:50)
[2018-05-07] MEDS: PHENYLEPHRINE 2.5% OPHTH SOL 2ML OS (07:50)
[2018-05-07] MEDS: POVIDONE-IODINE 5% OPHTH PREP SOL 30ML As Ordered (09:27)
[2018-05-07] MEDS: BALANCED SALT IRRIGATION SOLUTION 500ML BAG (FOR OR EYE MACHINE) As Ordered (09:29)
[2018-05-07] MEDS: DUOVISC (0.50ML VISCOAT/0.55ML PROVISC) OPHTH KIT As Ordered (09:29)
[2018-05-07] MEDS: LIDOCAINE 0.75%/EPINEPHRINE 0.025% IN BSS 1ML SYR INTRACAMERAL (OR ONLY) As Ordered (09:30)
[2018-05-07] MEDS ORDERED: MIDAZOLAM INJ 2 MG/2 ML VIAL (J2250) As Ordered (09:32)
[2018-05-07] MEDS ORDERED: fentaNYL 100 MCG/2 ML INJECTION (J3010) As Ordered (09:32)
== END 2018-05-07 10:24 | disposition home or self-care (01) ==
LOC: M SDC 07:23
DX: H25.11 Age-related nuclear cataract, right eye (principal)
CPT/HCPCS: 66984

== ENCOUNTER 2018-05-14 08:31 | Day surgery (SDC) | payer OTHER ==
[2018-05-14] MEDS: TROPICAMIDE 1% OPHTH SOLN 2ML OD (09:45)
[2018-05-14] MEDS: OFLOXACIN 0.3 % (OCUFLOX) OPTH SOL 5ML OD (09:45)
[2018-05-14] MEDS: PHENYLEPHRINE 2.5% OPHTH SOL 2ML OD (09:46)
[2018-05-14] MEDS: PROPARACAINE 0.5% OPHTH SOL 15ML OD (09:46)
[2018-05-14] MEDS ORDERED: fentaNYL 100 MCG/2 ML INJECTION (J3010) As Ordered (09:58)
[2018-05-14] MEDS ORDERED: MIDAZOLAM INJ 2 MG/2 ML VIAL (J2250) As Ordered (09:58)
[2018-05-14] MEDS: LIDOCAINE 0.75%/EPINEPHRINE 0.025% IN BSS 1ML SYR INTRACAMERAL (OR ONLY) As Ordered (10:28)
[2018-05-14] MEDS: BALANCED SALT IRRIGATION SOLUTION 500ML BAG (FOR OR EYE MACHINE) As Ordered (10:28)
[2018-05-14] MEDS: DUOVISC (0.50ML VISCOAT/0.55ML PROVISC) OPHTH KIT As Ordered (10:28)
[2018-05-14] MEDS: POVIDONE-IODINE 5% OPHTH PREP SOL 30ML As Ordered (10:28)
== END 2018-05-14 11:21 | disposition home or self-care (01) ==
LOC: M SDC 08:31
DX: H25.11 Age-related nuclear cataract, right eye (principal); M12.9 Arthropathy, unspecified; I20.9 Angina pectoris, unspecified; I10 Essential (primary) hypertension; R00.1 Bradycardia, unspecified; K57.32 Diverticulitis of large intestine without perforation or abscess without bleeding; K21.9 Gastro-esophageal reflux disease without esophagitis; M17.0 Bilateral primary osteoarthritis of knee; M81.0 Age-related osteoporosis without current pathological fracture; F32.9 Major depressive disorder, single episode, unspecified; J30.9 Allergic rhinitis, unspecified; Z88.1 Allergy status to other antibiotic agents; Z88.5 Allergy status to narcotic agent; Z79.899 Other long term (current) drug therapy; Z87.19 Personal history of other diseases of the digestive system; Z87.81 Personal history of (healed) traumatic fracture; Z90.710 Acquired absence of both cervix and uterus; Z78.0 Asymptomatic menopausal state; Z96.653 Presence of artificial knee joint, bilateral
CPT/HCPCS: 66984

== ENCOUNTER → 2018-09-30 | Outpatient (CLI) | payer OTHER ==
[2018-09-30 09:39] LABS: BASO % 0.9 % (0.0-1.0); EOS # 0.1 10^3/uL (0.0-0.50); EOS % 1.7 % (0.0-3.0); HEMATOCRIT 40.6 % (36.0-47.0); HEMOGLOBIN 13.6 g/dl (12.0-15.5); IMMATURE GRANULOCYTE % 0.6 % (0-3.0); LYMPH # 1.2 10^3/uL (1.5-4.5); LYMPH % 33.8 % (24.0-44.0); MEAN CORPUSCULAR HEMOGLOBIN 30.1 pg (27.0-33.0); MEAN CORPUSCULAR HGB CONC 33.5 g/dl (32.0-36.5); MEAN CORPUSCULAR VOLUME 89.8 fl (80.0-96.0); MONO # 0.2 10^3/uL (0.0-0.8); MONO % 6.7 % (0.0-5.0); NEUTROPHILS # 1.9 10^3/uL (1.8-7.7); NEUTROPHILS % 56.3 % (36.0-66.0); PLATELET COUNT, AUTOMATED 233 10^3/uL (150-450); RED BLOOD COUNT 4.52 10^6/uL (4.00-5.40); RED CELL DISTRIBUTION WIDTH 12.2 % (11.5-14.5); WHITE BLOOD COUNT 3.4 10^3/uL (4.0-10.0)
[2018-09-30 10:03] LABS: ALBUMIN 3.8 GM/DL (3.2-5.2); ALBUMIN/GLOBULIN RATIO 1.15 (1.00-1.93); ALKALINE PHOSPHATASE 89 U/L (45-117); ALT/SGPT 25 U/L (12-78); AMYLASE 47 U/L (25-115); ANION GAP 6 MEQ/L (8-16); AST/SGOT 14 U/L (7-37); BILIRUBIN,TOTAL 0.4 MG/DL (0.2-1.0); BLOOD UREA NITROGEN 11 MG/DL (7-18); CARBON DIOXIDE LEVEL 28 MEQ/L (21-32); CHLORIDE LEVEL 106 MEQ/L (98-107); CREATININE FOR GFR 0.85 MG/DL (0.55-1.30); GLOMERULAR FILTRATION RATE > 60.0 (>45); GLUCOSE, FASTING 98 MG/DL (70-100); LIPASE 111 U/L (73-393); POTASSIUM SERUM 4.2 MEQ/L (3.5-5.1); SODIUM LEVEL 140 MEQ/L (136-145); TOTAL PROTEIN 7.1 GM/DL (6.4-8.2)
== END ==
LOC: M LAB 08:53
DX: R10.10 Upper abdominal pain, unspecified (principal)
CPT/HCPCS: 82150

== ENCOUNTER → 2018-10-14 | Outpatient (CLI) | payer OTHER ==
[~2018-10-14] MED LIST changes: +FLOM0.4C39 PO; +GASTROGRAFIN SOLUTION 30ML (Q9963) As Ordered ONE; +IBUP-1114 PO; +ISOS30TA4; +ISOVUE-370 76% 100ML VIAL (Q9967) As Ordered ONE; +OMEP40CA2; +RANO5TAB
--- NOTE | 2018-10-14 19:52 | REP ---
Clinical: Abnormal weight loss. Technique: Axial contrast enhanced images from the lung bases to the pubic symphysis using oral (per protocol) and 100 ml Isovue 370 intravenous contrast material with precontrast images of the abdomen as well as coronal and sagittal re-formations. Comparison: 05/31/2014. Findings: Lung bases are clear. Visualized heart and pericardium within normal limits. Liver, spleen, pancreas, bilateral adrenal glands and right kidney are normal. The left kidney includes a 6 mm calculus which appears to obstruct the ureteropelvic junction and should be correlated clinically. Mild associated hydronephrosis noted without perinephric stranding. The patient is status post cholecystectomy. The enteric system demonstrates moderate gastroesophageal hiatal hernia. There is no evidence for bowel obstruction or acute inflammatory process. Scattered colonic and sigmoid diverticulosis noted without acute diverticulitis. Pelvis demonstrates normal bladder and evidence for prior hysterectomy. No pelvic fluid or ascites. No free air. No adenopathy. Abdominal aorta and vasculature within normal limits. Evidence for ventral hernia repair. Musculoskeletal structures demonstrate age-related degenerative changes. Impression: 1. 6 mm calculus presumed to cause early ureteropelvic junction obstruction and mild hydronephrosis. 2. Diverticulosis without acute diverticulitis. 3. Moderate hiatal hernia. Electronically Signed by Suresh Hwang MD 10/14/2018 07:44 P
== END ==
LOC: M RAD 10:41
PROVIDERS: ATTEND Physician Assistant Medical
DX: N20.1 Calculus of ureter (principal); K44.9 Diaphragmatic hernia without obstruction or gangrene
CPT/HCPCS: 74178; Q9963; Q9967

== ENCOUNTER 2018-10-15 17:13 | Emergency (ER) | payer OTHER ==
[~2018-10-15] VITALS: Ht 157.5 cm; Wt 72.7 kg
[~2018-10-15 17:13] MED LIST changes: -FLOM0.4C39 PO; -GASTROGRAFIN SOLUTION 30ML (Q9963) As Ordered ONE; -IBUP-1114 PO; -ISOVUE-370 76% 100ML VIAL (Q9967) As Ordered ONE; -OMEP40CA2
[2018-10-15] MEDS ORDERED: OMEP40CA2 (17:30)
[2018-10-15] MEDS ORDERED: HYDROMORPHONE HCL 0.5 MG/ 0.5 ML SYRINGE (J1170 PER 1) IV PRN (18:00)
[2018-10-15] MEDS ORDERED: NS 1,000 ML IV ONE (18:00)
[2018-10-15] MEDS ORDERED: ONDANSETRON 4MG/2ML VIAL (J2405) IV ONE (18:00)
[2018-10-15 18:19] LABS: BASO % 0.5 % (0.0-1.0); EOS % 0.5 % (0.0-3.0); HEMATOCRIT 36.6 % (36.0-47.0); HEMOGLOBIN 12.6 g/dl (12.0-15.5); LYMPH # 1.3 10^3/uL (1.5-4.5); LYMPH % 17.4 % (24.0-44.0); MEAN CORPUSCULAR HEMOGLOBIN 29.8 pg (27.0-33.0); MEAN CORPUSCULAR HGB CONC 34.4 g/dl (32.0-36.5); MEAN CORPUSCULAR VOLUME 86.5 fl (80.0-96.0); MONO # 0.6 10^3/uL (0.0-0.8); MONO % 8.2 % (0.0-5.0); NEUTROPHILS # 5.6 10^3/uL (1.8-7.7); NEUTROPHILS % 73.1 % (36.0-66.0); PLATELET COUNT, AUTOMATED 225 10^3/uL (150-450); RED BLOOD COUNT 4.23 10^6/uL (4.00-5.40); WHITE BLOOD COUNT 7.7 10^3/uL (4.0-10.0)
[2018-10-15 18:31] LABS: INR 0.94; PARTIAL THROMBOPLASTIN TIME 23.7 SECONDS (25.4-37.6); PROTHROMBIN TIME 12.7 SECONDS (12.1-14.4)
[2018-10-15 18:47] LABS: ALBUMIN 3.5 GM/DL (3.2-5.2); ALT/SGPT 22 U/L (12-78); AMYLASE 41 U/L (25-115); BILIRUBIN,DIRECT < 0.1 MG/DL (0.0-0.2); BILIRUBIN,TOTAL 0.3 MG/DL (0.2-1.0); BLOOD UREA NITROGEN 14 MG/DL (7-18); CARBON DIOXIDE LEVEL 26 MEQ/L (21-32); CHLORIDE LEVEL 105 MEQ/L (98-107); CK-MB VALUE MASS < 1.0 NG/ML (<3.6); CPK CREATINE PHOSPHOKINASE 96 U/L (26-192); CREATININE FOR GFR 1.11 MG/DL (0.55-1.30); GLOMERULAR FILTRATION RATE 52.7 (>45); GLUCOSE, FASTING 125 MG/DL (70-100); LIPASE 86 U/L (73-393); MB/CK RELATIVE INDEX 1.04 (< OR =4); POTASSIUM SERUM 3.8 MEQ/L (3.5-5.1); SODIUM LEVEL 141 MEQ/L (136-145); TOTAL PROTEIN 6.8 GM/DL (6.4-8.2); TROPONIN I < 0.02 NG/ML (< 0.10)
--- NOTE | 2018-10-15 20:20 | REPVR ---
EXAM: CT Abdomen and Pelvis Without Contrast EXAM DATE/TIME: 10/15/2018 6:56 PM CLINICAL HISTORY: 63 years old, female; Condition or disease; Kidney or ureter condition; Calculus (stone) in kidney and hydronephrosis; Additional info: Hydronephrosis, stone TECHNIQUE: Axial computed tomography images of the abdomen and pelvis without contrast. All CT scans at this facility use at least one of these dose optimization techniques: automated exposure control; mA and/or kV adjustment per patient size (includes targeted exams where dose is matched to clinical indication); or iterative reconstruction. Coronal and sagittal reformatted images were created and reviewed. COMPARISON: CT ABD PELVIS W/O FOL BY WIT 10/14/2018 12:30 PM FINDINGS: Lower thorax: Small hiatal hernia. ABDOMEN: Liver: Normal. No mass. Gallbladder and bile ducts: There has been a cholecystectomy. Pancreas: Normal. No ductal dilation. Spleen: Normal. No splenomegaly. Adrenals: Normal. No mass. Kidneys and ureters: Mild left hydroureteronephrosis and perinephric stranding secondary to a 5.5 mm left UVJ stone. Tiny punctate, nonobstructing calcification in the lower pole of the left kidney. Stomach and bowel: There is diverticulosis of the descending and sigmoid colon without diverticulitis. Appendix: No evidence of appendicitis. PELVIS: Bladder: Unremarkable as visualized. Reproductive: Unremarkable as visualized. ABDOMEN and PELVIS: Intraperitoneal space: Normal. No free air. No significant fluid collection. Bones/joints: No acute fracture. No dislocation. Multilevel lumbar degenerative changes. Soft tissues: There are postsurgical changes of the anterior abdominal wall. Vasculature: Normal. No abdominal aortic aneurysm. Lymph nodes: Normal. No enlarged lymph nodes. IMPRESSION: Left UVJ stone measuring 5.5 mm and causing mild left hydroureteronephrosis. Electronically signed by: Carina Hernandez On 10/15/2018 20:20:03 PM
[2018-10-15] MEDS ORDERED: TAMSULOSIN 0.4 MG CAP PO ONE (20:45)
[2018-10-15] MEDS ORDERED: KETOROLAC 30 MG/ML VIAL (J1885) IV ONE (20:45)
[2018-10-15] MEDS ORDERED: IBUP-1114 PO (21:44)
[2018-10-15] MEDS ORDERED: FLOM0.4C39 PO (21:44)
[2018-10-15 22:05] VITALS: BP 112/54
--- NOTE | 2018-10-17 12:24 | ECGEPIP ---
Stationary ECG Study [facility] - ED Test Date: 2018-10-15 Pat Name: PHAN JAMES Department: Room: - Gender: F Technical Support Director: anderson : 1955 Requested By: ALISA Harvey Order Number: [id number] Reading MD: Essence Coello Measurements Intervals Mabie Rate: 54 P: 59 HI: 129 QRS: 20 QRSD: 94 T: 102 QT: 450 QTc: 430 Interpretive Statements SINUS BRADYCARDIA ST DEVIATION AND MODERATE T-WAVE ABNORMALITY, CONSIDER ANTEROLATERAL ISCHEMIA cw 06/03/17 similar morphology RATE DECREASED Electronically Signed On 10-17-2018 12:23:52 EST by Essence Coello
== END 2018-10-15 22:12 | disposition home or self-care (01) ==
LOC: M ED 17:13
DX: N20.1 Calculus of ureter (principal); N13.6 Pyonephrosis; K21.9 Gastro-esophageal reflux disease without esophagitis
CPT/HCPCS: 74176; 80048; 80076; 81001; 82150; 82550; 82553; 83605; 83690; 84484; 85025; 85610; 85730; 86850; 86900; 86901; 87040; 87086; 93005; 93041; 96361; 96374; 96375; 99284; J1170; J1885; J2405

== ENCOUNTER → 2018-10-23 | Outpatient (REF) | payer OTHER ==
[~2018-10-23] MED LIST changes: +FLOM0.4C39 PO; +IBUP-1114 PO; +OMEP40CA2
[2018-10-23 13:21] LABS: APPEARANCE, URINE CLEAR (CLEAR); BACTERIA, URINE AUTO NEGATIVE (NEGATIVE); BILIRUBIN, URINE AUTO NEGATIVE (NEGATIVE); BLOOD, URINE BLOOD NEGATIVE (NEGATIVE); COLOR, URINE YELLOW (YELLOW); GLUCOSE, URINE (UA) AUTO NEGATIVE (NEGATIVE); KETONE, URINE AUTO NEGATIVE (NEGATIVE); LEUKOCYTE ESTERASE, URINE AUTO NEGATIVE (NEGATIVE); NITRITE, URINE AUTO NEGATIVE (NEGATIVE); PROTEIN, URINE AUTO NEGATIVE (NEGATIVE); RBC, URINE AUTO 0 /HPF (0-3); SPECIFIC GRAVITY URINE AUTO 1.016 (1.002-1.035); SQUAMOUS EPITHELIAL CELL UR AU 0 /HPF (0-6); UROBILINOGEN, URINE AUTO 0.2 mg/dL (0.0-2.0); WBC, URINE AUTO 1 /HPF (0-3)
== END ==
LOC: M SMT 12:58
PROVIDERS: ATTEND Nurse Practitioner Family
DX: N20.0 Calculus of kidney (principal); Z01.818 Encounter for other preprocedural examination

== ENCOUNTER → 2018-10-30 | Outpatient (REF) | payer OTHER ==
[~2018-10-30] MED LIST changes: +CBD OIL PO; -ISOS30TA4; +ISOS30TA4 PO; -OMEP40CA2; +OMEP40CA2 PO; -RANO5TAB
[2018-10-30 13:47] LABS: APPEARANCE, URINE CLEAR (CLEAR); BACTERIA, URINE AUTO NEGATIVE (NEGATIVE); BILIRUBIN, URINE AUTO NEGATIVE (NEGATIVE); BLOOD, URINE BLOOD NEGATIVE (NEGATIVE); COLOR, URINE YELLOW (YELLOW); GLUCOSE, URINE (UA) AUTO NEGATIVE (NEGATIVE); KETONE, URINE AUTO NEGATIVE (NEGATIVE); LEUKOCYTE ESTERASE, URINE AUTO NEGATIVE (NEGATIVE); NITRITE, URINE AUTO NEGATIVE (NEGATIVE); PROTEIN, URINE AUTO NEGATIVE (NEGATIVE); RBC, URINE AUTO 1 /HPF (0-3); SPECIFIC GRAVITY URINE AUTO 1.018 (1.002-1.035); SQUAMOUS EPITHELIAL CELL UR AU 0 /HPF (0-6); WBC, URINE AUTO 1 /HPF (0-3)
== END ==
LOC: M SMT 13:05
PROVIDERS: ATTEND Nurse Practitioner Family
DX: N20.0 Calculus of kidney (principal)

== ENCOUNTER → 2018-11-05 | Outpatient (CLI) | payer OTHER ==
[2018-11-05 18:20] LABS: HEMATOCRIT 36.7 % (36.0-47.0); HEMOGLOBIN 12.4 g/dl (12.0-15.5); MEAN CORPUSCULAR HEMOGLOBIN 29.9 pg (27.0-33.0); MEAN CORPUSCULAR HGB CONC 33.8 g/dl (32.0-36.5); MEAN CORPUSCULAR VOLUME 88.4 fl (80.0-96.0); PLATELET COUNT, AUTOMATED 220 10^3/uL (150-450); RED BLOOD COUNT 4.15 10^6/uL (4.00-5.40); WHITE BLOOD COUNT 3.6 10^3/uL (4.0-10.0)
[2018-11-05 18:28] LABS: APPEARANCE, URINE CLEAR (CLEAR); BACTERIA, URINE AUTO NEGATIVE (NEGATIVE); BILIRUBIN, URINE AUTO NEGATIVE (NEGATIVE); BLOOD, URINE BLOOD NEGATIVE (NEGATIVE); COLOR, URINE YELLOW (YELLOW); GLUCOSE, URINE (UA) AUTO NEGATIVE (NEGATIVE); KETONE, URINE AUTO NEGATIVE (NEGATIVE); LEUKOCYTE ESTERASE, URINE AUTO TRACE (NEGATIVE); MUCUS, URINE SMALL (NEGATIVE); NITRITE, URINE AUTO NEGATIVE (NEGATIVE); PROTEIN, URINE AUTO NEGATIVE (NEGATIVE); RBC, URINE AUTO 1 /HPF (0-3); SQUAMOUS EPITHELIAL CELL UR AU 0 /HPF (0-6); WBC, URINE AUTO 3 /HPF (0-3)
[2018-11-05 18:34] LABS: INR 0.98; PROTHROMBIN TIME 13.1 SECONDS (12.1-14.4)
[2018-11-05 18:35] LABS: PARTIAL THROMBOPLASTIN TIME 26.5 SECONDS (25.4-37.6)
[2018-11-05 18:47] LABS: BLOOD UREA NITROGEN 14 MG/DL (7-18); CALCIUM LEVEL 9.4 MG/DL (8.8-10.2); CARBON DIOXIDE LEVEL 27 MEQ/L (21-32); CHLORIDE LEVEL 105 MEQ/L (98-107); CREATININE FOR GFR 0.92 MG/DL (0.55-1.30); GLOMERULAR FILTRATION RATE > 60.0 (>45); GLUCOSE, FASTING 108 MG/DL (70-100); POTASSIUM SERUM 4.5 MEQ/L (3.5-5.1); SODIUM LEVEL 138 MEQ/L (136-145)
--- NOTE | 2018-11-06 03:05 | REP ---
Clinical: Preoperative assessment for nephroureterolithiasis . Comparison: 05/19/2017 . Technique: PA and lateral. Findings: The mediastinum and cardiac silhouette are normal. The lung frye are clear and without acute consolidation, effusion, or pneumothorax. The skeletal structures are intact and normal. Impression: 1. No acute cardiopulmonary process. Electronically Signed by Suresh Hwang MD 11/06/2018 02:56 A
== END ==
LOC: M RAD 17:15
PROVIDERS: ATTEND Nurse Practitioner Family
DX: Z01.818 Encounter for other preprocedural examination (principal); N20.0 Calculus of kidney

== ENCOUNTER 2018-11-20 08:21 | Day surgery (SDC) | payer OTHER ==
[~2018-11-20] VITALS: Ht 157.5 cm; Wt 72.6 kg
[~2018-11-20 08:21] MED LIST changes: +LIDOCAINE 2% INJ 100 MG/5 ML SDV (FOR ANES.) As Ordered ONE; +PROPOFOL 200 MG/20 ML VIAL As Ordered ONE
[2018-11-20] MEDS ORDERED: fentaNYL 100 MCG/2 ML INJECTION (J3010) As Ordered ONE (08:56)
[2018-11-20] MEDS ORDERED: NS 1,000 ML IV ONE (09:00)
[2018-11-20] MEDS ORDERED: PROPOFOL 200 MG/20 ML VIAL As Ordered ONE (10:18)
--- NOTE | 2018-11-20 10:43 | ROOR ---
Patient Name: Mireya Pak Procedure Date: 11/20/2018 9:20 AM Date of : 1955 Age: 63 Room: [facility] Gender: Female Note Status: Finalized Procedure: Upper GI endoscopy Indications: Heartburn, Suspected gastro-esophageal reflux disease, Weight loss Providers: Momo Smith MD Referring MD: Jaime Dos Santos Requesting Provider: Medicines: Monitored Anesthesia Care Complications: No immediate complications. Procedure: Pre-Anesthesia Assessment: - Prior to the procedure, a History and Physical was performed, and patient medications and allergies were reviewed. The patient is competent. The risks and benefits of the procedure and the sedation options and risks were discussed with the patient. All questions were answered and informed consent was obtained. Patient identification and proposed procedure were verified by the physician, the nurse and the anesthesiologist in the procedure room. Mental Status Examination: alert and oriented. Airway Examination: normal oropharyngeal airway and neck mobility. Respiratory Examination: clear to auscultation. CV Examination: normal. Prophylactic Antibiotics: The patient does not require prophylactic antibiotics. Prior Anticoagulants: The patient has taken no previous anticoagulant or antiplatelet agents. ASA Grade Assessment: III - A patient with severe systemic disease. After reviewing the risks and benefits, the patient was deemed in satisfactory condition to undergo the procedure. The anesthesia plan was to use monitored anesthesia care (MAC). Immediately prior to administration of medications, the patient was re-assessed for adequacy to receive sedatives. The heart rate, respiratory rate, oxygen saturations, blood pressure, adequacy of pulmonary ventilation, and response to care were monitored throughout the procedure. The physical status of the patient was re-assessed after the procedure. The upper GI endoscopy was accomplished without difficulty. The patient tolerated the procedure well. The Endoscope was introduced through the mouth, and advanced to the second part of duodenum. Findings: The Z-line was regular and was found in the distal esophagus. Diffuse moderate inflammation characterized by congestion (edema) and erythema was found in the gastric body and in the gastric antrum. Biopsies were taken with a cold forceps for Helicobacter pylori testing. Verification of patient identification for the specimen was done by the physician and nurse using the patient's name, date and medical record number. Estimated blood loss was minimal. The duodenal bulb and second portion of the duodenum were normal. Biopsies for histology were taken with a cold forceps for evaluation of celiac disease. Impression: - Z-line regular, in the distal esophagus. - Gastritis. Biopsied. - Normal duodenal bulb and second portion of the duodenum. Biopsied. Recommendation: - Patient has a contact number available for emergencies. The signs and symptoms of potential delayed complications were discussed with the patient. Return to normal activities tomorrow. Written discharge instructions were provided to the patient. - Full liquid diet for 1 day, then advance as tolerated to resume regular diet and high fiber diet. - Continue present medications. - Await pathology results. - Based on the biopsy results you will receive a phone call from GI clinic in 2-3 weeks to review the pathology results AND/OR your results will be faxed to your Primary care physician. - Return to primary care physician. Momo Smith MD Momo Smith MD 11/20/2018 10:43:11 AM This report has been signed electronically. Number of Addenda: 0 Note Initiated On: 11/20/2018 7:28 AM Estimated Blood Loss: Estimated blood loss was minimal.
--- NOTE | 2018-11-20 10:52 | ROOR ---
Patient Name: Mireya Pak Procedure Date: 11/20/2018 9:20 AM Date of : 1955 Age: 63 Room: [facility] Gender: Female Note Status: Finalized Procedure: Colonoscopy Indications: Weight loss Providers: Momo Smith MD Referring MD: Jaime Dos Santos Requesting Provider: Medicines: Monitored Anesthesia Care Complications: No immediate complications. Procedure: Pre-Anesthesia Assessment: - Prior to the procedure, a History and Physical was performed, and patient medications and allergies were reviewed. The patient is competent. The risks and benefits of the procedure and the sedation options and risks were discussed with the patient. All questions were answered and informed consent was obtained. Patient identification and proposed procedure were verified by the physician, the nurse and the anesthesiologist in the procedure room. Mental Status Examination: alert and oriented. Airway Examination: normal oropharyngeal airway and neck mobility. Respiratory Examination: clear to auscultation. CV Examination: normal. Prophylactic Antibiotics: The patient does not require prophylactic antibiotics. Prior Anticoagulants: The patient has taken no previous anticoagulant or antiplatelet agents. ASA Grade Assessment: III - A patient with severe systemic disease. After reviewing the risks and benefits, the patient was deemed in satisfactory condition to undergo the procedure. The anesthesia plan was to use monitored anesthesia care (MAC). Immediately prior to administration of medications, the patient was re-assessed for adequacy to receive sedatives. The heart rate, respiratory rate, oxygen saturations, blood pressure, adequacy of pulmonary ventilation, and response to care were monitored throughout the procedure. The physical status of the patient was re-assessed after the procedure. The colonoscopy was performed without difficulty. The patient tolerated the procedure well. The quality of the bowel preparation was good. The terminal ileum, ileocecal valve, appendiceal orifice, and rectum were photographed. The Colonoscope was introduced through the anus and advanced to the terminal ileum, with identification of the appendiceal orifice and IC valve. Scope insertion time was 4 minutes. Scope withdrawal time was 20 minutes. The total duration of the procedure was 24 minutes. Findings: The perianal and digital rectal examinations were normal. The terminal ileum appeared normal. A 30 mm polyp was found in the ileocecal valve. The polyp was carpet-like, flat and multi-lobulated. Polypectomy was attempted, initially using a hot snare. Polyp resection was incomplete with this device. This intervention then required a different device and polypectomy technique. The polyp was removed with a jumbo cold forceps. Resection and retrieval were complete. To close a defect after polypectomy, six hemostatic clips were successfully placed. There was no bleeding at the end of the procedure. A 5 mm polyp was found in the ascending colon. The polyp was sessile. The polyp was removed with a jumbo cold forceps. Resection and retrieval were complete. Multiple small and large-mouthed diverticula were found from sigmoid to descending colon. There was no evidence of diverticular bleeding. Non-bleeding external and internal hemorrhoids were found during retroflexion. The hemorrhoids were medium-sized. Impression: - The examined portion of the ileum was normal. - One 30 mm polyp at the ileocecal valve, removed with a jumbo cold forceps. Resected and retrieved. Clips were placed. - One 5 mm polyp in the ascending colon, removed with a jumbo cold forceps. Resected and retrieved. - Moderate diverticulosis from sigmoid to descending colon. There was no evidence of diverticular bleeding. - Non-bleeding external and internal hemorrhoids. Recommendation: - Patient has a contact number available for emergencies. The signs and symptoms of potential delayed complications were discussed with the patient. Return to normal activities tomorrow. Written discharge instructions were provided to the patient. - Full liquid diet for 1 day, then advance as tolerated to resume regular diet and high fiber diet. - Continue present medications. - Await pathology results. - Repeat colonoscopy in 1 year for surveillance based on pathology results. - Based on the biopsy results you will receive a phone call from GI clinic in 2-3 weeks to review the pathology results AND/OR your results will be faxed to your Primary care physician. - Return to primary care physician. Momo Smith MD Momo Smith MD 11/20/2018 10:51:32 AM This report has been signed electronically. Number of Addenda: 0 Note Initiated On: 11/20/2018 7:31 AM Estimated Blood Loss: Estimated blood loss was minimal.
[2018-11-20 11:03] VITALS: BP 144/81
== END 2018-11-20 11:15 | disposition home or self-care (01) ==
LOC: M OPP 08:21
PROVIDERS: ATTEND Internal Medicine Gastroenterology
DX: K64.8 Other hemorrhoids (principal); D12.0 Benign neoplasm of cecum; D12.2 Benign neoplasm of ascending colon; K57.30 Diverticulosis of large intestine without perforation or abscess without bleeding; K29.70 Gastritis, unspecified, without bleeding; R12 Heartburn; R63.4 Abnormal weight loss; N20.0 Calculus of kidney; K21.9 Gastro-esophageal reflux disease without esophagitis; R00.8 Other abnormalities of heart beat; Z80.0 Family history of malignant neoplasm of digestive organs; Z80.42 Family history of malignant neoplasm of prostate; Z79.899 Other long term (current) drug therapy; Z88.8 Allergy status to other drugs, medicaments and biological substances; Z87.891 Personal history of nicotine dependence
CPT/HCPCS: 43239; 45380; 88305; J3010

== ENCOUNTER → 2018-11-23 | Outpatient (CLI) | payer OTHER ==
[~2018-11-23] MED LIST changes: -LIDOCAINE 2% INJ 100 MG/5 ML SDV (FOR ANES.) As Ordered ONE; -PROPOFOL 200 MG/20 ML VIAL As Ordered ONE; +TYLE500T78 PO
== END ==
LOC: M LRY 13:54
PROVIDERS: ATTEND Urology Pediatric Urology
DX: N13.2 Hydronephrosis with renal and ureteral calculous obstruction (principal)

== ENCOUNTER 2018-11-24 05:53 | Day surgery (SDC) | payer OTHER ==
[~2018-11-24] VITALS: Ht 154.9 cm; Wt 73.9 kg
[~2018-11-24 05:53] MED LIST changes: -TYLE500T78 PO
[2018-11-24] MEDS ORDERED: CIPROFLOXACIN 400 MG in APPROPRIATE DILUENT 1 EA IV ONE (06:00)
[2018-11-24] MEDS ORDERED: LR 1,000 ML IV ONE (06:00)
[2018-11-24] MEDS ORDERED: CONRAY-60 60% 50ML VIAL (Q9961) As Ordered ONE (07:14)
[2018-11-24] MEDS ORDERED: fentaNYL 100 MCG/2 ML INJECTION (J3010) As Ordered ONE (07:16)
[2018-11-24] MEDS ORDERED: MIDAZOLAM INJ 2 MG/2 ML VIAL (J2250) As Ordered ONE (07:16)
[2018-11-24] MEDS ORDERED: LIDOCAINE 2% INJ 100 MG/5 ML SDV (FOR ANES.) As Ordered ONE (07:16)
[2018-11-24] MEDS ORDERED: PROPOFOL 200 MG/20 ML VIAL As Ordered ONE (07:16)
[2018-11-24] MEDS ORDERED: LIDOCAINE 2% 5ML JELLY UROJET As Ordered ONE (07:17)
[2018-11-24] MEDS ORDERED: ONDANSETRON 4MG/2ML VIAL (J2405) As Ordered ONE (07:19)
[2018-11-24] MEDS ORDERED: dexameTHASONE 4 MG/ML 1ML VIAL (J1100) As Ordered ONE (07:19)
--- NOTE | 2018-11-24 08:55 | REP ---
Retrograde pyelogram: Two views. History: Kidney stone. 19 seconds of fluoroscopy time is reported. Findings: A sequence of two last image hold fluoroscopically obtained spot radiographs of the abdomen document double pigtail left ureteral stent position. Electronically Signed by Griffin Rose MD 11/24/2018 08:46 A
--- NOTE | 2018-11-24 08:57 | ROOPDOC ---
[facility] Report Of Operation Report of Operation DATE OF PROCEDURE: 11/24/18 PREPROCEDURE DIAGNOSES:left distal ureteral stone. POSTPROCEDURE DIAGNOSES: same. PROCEDURE: left stent removal, balloon dilation, ureteroscopy, laser lithotripsy, stone basketing, stent placement. SURGEON: Chemo Long MD [facility] ANESTHESIA: GET (Dr. Ledbetter). ESTIMATED BLOOD LOSS: Approximately <10 mL. COMPLICATIONS: none. REMARKS/FINDINGS: 1. left distal stone 2. left visible distal ureteral stone. 3. stent 6f [id number] stent 4. distal ureteral stricture SPECIMEN: urine sent ua and ucx; stone for analysis DESCRIPTION OF PROCEDURE: After informed consent pt was taken to the operating room where routine time out was performed for all care stakeholders, who were in agreement. The patient was placed in lithotomy position, prepped and draped and 21 f cystoscope was introduced into the bladder. A visible distal stone was seen at the ureteral orifice where a pollack was placed in the distal ureter and retrograde was performed with Conray to the distal ureter and a motion hybrid wire was placed up the ureter into the renal pelvis. A 12f x 10cm ureteral balloon was insufflated to 20cm h20 pressure for 5min after its exchange for the pollack o fernie the wire. Then along side the safety wire a Semi rigid ureteroscope was introduced up the ureter to the stone which broken into smaller peices with 365nm laser fiber at a setting of 10 granda (1j and 10hz). The stone, fortunately did not appear to travel up the kidney. After breakage of stone; stone fragments were retrieved with the 0 tip nitinol basket. The stone fragments were sent for stone analysis. The semirigid ureteroscope was removed leaving behind the motion hybrid wire which was previously advanced to the renal pelvis. The stent 6f 22- 30cm was placed over the wire and secured to left inner thigh with Mastisol, steri strips and Tegaderm, after cleaning the patient. The patient tolerated the procedure well and was taken to the recovery room in excellent condition. Chemo Long MD [facility]. Chemo Long MD Nov 24, 2018 08:57
[2018-11-24] MEDS ORDERED: TYLE500T78 PO (09:02)
[2018-11-24 09:26] LABS: APPEARANCE, URINE CLEAR (CLEAR); BACTERIA, URINE AUTO NEGATIVE (NEGATIVE); BILIRUBIN, URINE AUTO NEGATIVE (NEGATIVE); BLOOD, URINE BLOOD NEGATIVE (NEGATIVE); COLOR, URINE YELLOW (YELLOW); GLUCOSE, URINE (UA) AUTO NEGATIVE (NEGATIVE); KETONE, URINE AUTO NEGATIVE (NEGATIVE); LEUKOCYTE ESTERASE, URINE AUTO NEGATIVE (NEGATIVE); NITRITE, URINE AUTO NEGATIVE (NEGATIVE); PROTEIN, URINE AUTO NEGATIVE (NEGATIVE); RBC, URINE AUTO 0 /HPF (0-3); SPECIFIC GRAVITY URINE AUTO 1.013 (1.002-1.035); SQUAMOUS EPITHELIAL CELL UR AU 0 /HPF (0-6); UROBILINOGEN, URINE AUTO 0.2 mg/dL (0.0-2.0); WBC, URINE AUTO 0 /HPF (0-3)
[2018-11-24] MEDS ORDERED: fentaNYL 100 MCG/2 ML INJECTION (J3010) IV PRN (09:30)
[2018-11-24] MEDS ORDERED: PERCOCET 5MG/325MG TAB PO PRN (09:30)
[2018-11-24] MEDS ORDERED: ONDANSETRON 4MG/2ML VIAL (J2405) IV PRN (09:30)
[2018-11-24] MEDS ORDERED: LR 1,000 ML IV SCH (09:30)
[2018-11-24] MEDS ORDERED: ACETAMINOPHEN 500 MG TAB As Ordered ONE (10:32)
[2018-11-24] MEDS ORDERED: ACETAMINOPHEN 500 MG TAB PO ONE (10:45)
[2018-11-24 11:30] VITALS: BP 159/90
[2018-11-27 15:03] LABS: CA Oxalate Dihy 30 % (.); Ca Ox Monohydrate 60 % (.)
== END 2018-11-24 11:54 | disposition home or self-care (01) ==
LOC: M SDC 05:53
PROVIDERS: ATTEND Urology Pediatric Urology
DX: N20.1 Calculus of ureter (principal); N35.92 Unspecified urethral stricture, female; H40.9 Unspecified glaucoma; I10 Essential (primary) hypertension; E88.81 Metabolic syndrome and other insulin resistance; R00.1 Bradycardia, unspecified; K21.9 Gastro-esophageal reflux disease without esophagitis; M12.9 Arthropathy, unspecified; M81.0 Age-related osteoporosis without current pathological fracture; F32.9 Major depressive disorder, single episode, unspecified; L10.0 Pemphigus vulgaris; R07.9 Chest pain, unspecified; R53.83 Other fatigue; R06.02 Shortness of breath; Z88.0 Allergy status to penicillin; Z88.5 Allergy status to narcotic agent; Z79.899 Other long term (current) drug therapy; Z87.81 Personal history of (healed) traumatic fracture; Z90.710 Acquired absence of both cervix and uterus; Z78.0 Asymptomatic menopausal state; Z98.51 Tubal ligation status; Z96.653 Presence of artificial knee joint, bilateral; Z98.41 Cataract extraction status, right eye; Z98.42 Cataract extraction status, left eye; Z96.1 Presence of intraocular lens
CPT/HCPCS: 52344; 52356; 74420; 81001; 82360; 87086; 88300; C1769; C2617; J0744; J1100; J2250; J2405; J3010; Q9961

== ENCOUNTER → 2019-05-04 | Outpatient (REF) | payer OTHER ==
[~2019-05-04] MED LIST changes: +RANO500T7 PO; -RANO5TAB PO; +TYLE500T78 PO
== END ==
LOC: M LAB REF 09:45
PROVIDERS: ATTEND Physician Assistant
DX: J02.9 Acute pharyngitis, unspecified (principal)

== ENCOUNTER → 2019-07-31 | Outpatient (CLI) | payer OTHER ==
--- NOTE | 2019-07-31 10:24 | REP ---
AP pelvis for lower abdominal pain: The visualized bowel gas pattern is normal. There are pelvic calcifications. These are nonspecific and could be phleboliths or could be ureteral. Clinical correlation is recommended. The sacroiliac articulations and hip articulations are unremarkable. 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 Impression: Pelvic calcifications, nonspecific, ureteral versus phleboliths. Correlate clinically. Electronically Signed by Josiah Klein MD 07/31/2019 10:16 A
== END ==
LOC: M WUC 09:53
PROVIDERS: ATTEND Physician Assistant
DX: R10.30 Lower abdominal pain, unspecified (principal)

== ENCOUNTER → 2020-06-20 | Outpatient (CLI) | payer OTHER ==
[~2020-06-20] MED LIST changes: +NAPR-885; +OMEP-218; -OMEP40CA2 PO; +OMEP40CA97 PO
--- NOTE | 2020-06-20 10:46 | REPMRS ---
Digital Woman Screen Mammo: June 20, 2020 - Exam #: [id number] Bilateral CC and MLO view(s) were taken. Technologist: Mireya Bhatt, Technologist Prior study comparison: September 01, 2016, bilateral digital mammo screening bilat, performed at [facility]. August 31, 2014, bilateral digital mammo screening bilat, performed at [facility]. July 18, 2011, bilateral digital mammo screening bilat, performed at [facility]. FINDINGS: There are scattered fibroglandular densities. The Volpara volumetric breast density category is:B. There has been no change in the appearance of the mammogram from the prior studies. There is a mild amount of scattered fibroglandular density which is fairly symmetric. There is no interval development of dominant mass, architectural distortion, or grouped microcalcification suggestive of malignancy. 3-D tomosynthesis shows no additional findings. Assessment: BI-RADS/ACR category 1 mammogram. Negative Mammogram. Recommendation Routine screening mammogram of both breasts in 1 year (for women over age 40). This patient's Lifetime Breast Cancer Risk is estimated at 4.8 %. This mammogram was interpreted with the aid of an FDA-approved computer-aided dectection system. Electronically Signed By: Gael Rose MD 06/20/20 [id number]
--- NOTE | 2020-06-23 10:48 | DEXA ---
AP SPINE L1 - L4 1.138 -0.4 1.2 LT FEMUR TOTAL 0.808 -1.6 -0.3 LT NECK 0.712 -2.3 -0.8 RT FEMUR TOTAL 0.842 -1.3 -0.1 RT NECK 1.073 0.3 1.8 TOTAL BODY TOTAL OTHER COMMENTS: Normal Bone Densitometry of the spine. There is low bone density of the hips. The density of the spine has decreased 2.6% since the initial exam on 01/19/2004. The increased 0.5% since the most recent exam on 04/28/2009. The density of the left hip has decreased 11.2% since the initial exam on 01/19/2004. The density of the left hip has decreased 10.0% since the most recent exam on 04/28/2009. The density of the right hip has decreased 6.9% since the initial exam on 01/19/2004. The density of the right hip has decreased 3.0% since the most recent exam on 04/28/2009. FOLLOW-UP: Recommendation for the next bone density exam: 2 years. LUDMILA
== END ==
LOC: M WHC 09:48
PROVIDERS: ATTEND Physician Assistant
DX: M89.9 Disorder of bone, unspecified (principal); Z12.31 Encounter for screening mammogram for malignant neoplasm of breast

== ENCOUNTER → 2020-08-03 | Outpatient (CLI) | payer OTHER | LOC: M LABSMTC 10:25 | PROVIDERS: ATTEND Anesthesiology | DX: Z01.812 Encounter for preprocedural laboratory examination (principal); Z20.828 Contact with and (suspected) exposure to other viral communicable diseases ==

== ENCOUNTER 2020-08-08 07:31 | Day surgery (SDC) | payer OTHER ==
[~2020-08-08] VITALS: Ht 154.9 cm; Wt 74.8 kg
[2020-08-08] MEDS ORDERED: CELE10TA PO (08:24)
[2020-08-08] MEDS ORDERED: propofoL 200 MG/20 ML VIAL As Ordered ONE (08:35)
[2020-08-08] MEDS ORDERED: LIDOCAINE 2% 100MG/5ML SDV (FOR ANES.) As Ordered ONE (08:35)
[2020-08-08] MEDS ORDERED: GLYCOPYRROLATE INJ 0.2 MG/ML 2 ML VIAL As Ordered ONE (09:04)
[2020-08-08] MEDS ORDERED: ELEVIEW SUBMUCOSAL INJ 10ML AMP As Ordered ONE (09:14)
--- NOTE | 2020-08-08 10:12 | ROOR ---
Patient Name: Mireya Pak Procedure Date: 08/08/2020 8:49 AM Date of : 1955 Age: 65 Room: [facility] Gender: Female Note Status: Finalized Procedure: Colonoscopy Indications: High risk colon cancer surveillance: Personal history of colonic polyps Providers: Momo Smith MD Referring MD: CULLEN Dos Santos Requesting Provider: Medicines: Monitored Anesthesia Care Complications: No immediate complications. Procedure: Pre-Anesthesia Assessment: - Prior to the procedure, a History and Physical was performed, and patient medications and allergies were reviewed. The patient is competent. The risks and benefits of the procedure and the sedation options and risks were discussed with the patient. All questions were answered and informed consent was obtained. Patient identification and proposed procedure were verified by the physician, the nurse and the anesthesiologist in the procedure room. Mental Status Examination: alert and oriented. Airway Examination: normal oropharyngeal airway and neck mobility. Respiratory Examination: clear to auscultation. CV Examination: normal. Prophylactic Antibiotics: The patient does not require prophylactic antibiotics. Prior Anticoagulants: The patient has taken no previous anticoagulant or antiplatelet agents. ASA Grade Assessment: II - A patient with mild systemic disease. After reviewing the risks and benefits, the patient was deemed in satisfactory condition to undergo the procedure. The anesthesia plan was to use monitored anesthesia care (MAC). Immediately prior to administration of medications, the patient was re-assessed for adequacy to receive sedatives. The heart rate, respiratory rate, oxygen saturations, blood pressure, adequacy of pulmonary ventilation, and response to care were monitored throughout the procedure. The physical status of the patient was re-assessed after the procedure. The Colonoscope was introduced through the anus and advanced to the terminal ileum, with identification of the appendiceal orifice and IC valve. The colonoscopy was performed without difficulty. The patient tolerated the procedure well. The quality of the bowel preparation was good. The terminal ileum, ileocecal valve, appendiceal orifice, and rectum were photographed. Scope insertion time was 3 minutes. Scope withdrawal time was 10 minutes. The total duration of the procedure was 20 minutes. Findings: The perianal and digital rectal examinations were normal. The terminal ileum appeared normal. A 30 mm polyp was found in the ileocecal valve. The polyp was carpet-like, flat, sessile and granular lateral spreading. Preparations were made for mucosal resection. Chromoscopy with methylene blue was done to tessy the borders of the lesion. 6 mL of Eleview was injected with partial lift of the lesion from the muscularis propria. Piecemeal mucosal resection using a snare with suction (via the working channel) retrieval was performed. A 20 mm area was resected. Resection and retrieval were complete. There was no bleeding at the end of the procedure. To close a defect after mucosal resection, two hemostatic clips were successfully placed. There was no bleeding at the end of the procedure. Verification of patient identification for the specimen was done by the physician and nurse using the patient's name, date and medical record number. Estimated blood loss was minimal. Multiple small and large-mouthed diverticula were found from sigmoid to descending colon. There was no evidence of diverticular bleeding. External and internal hemorrhoids were found during retroflexion. The hemorrhoids were medium-sized. Impression: - The examined portion of the ileum was normal. - One 30 mm polyp at the ileocecal valve, removed with mucosal resection. Resected and retrieved. Clips were placed. - Moderate diverticulosis from sigmoid to descending colon. There was no evidence of diverticular bleeding. - External and internal hemorrhoids. - Mucosal resection was performed. Resection and retrieval were complete. Recommendation: - Patient has a contact number available for emergencies. The signs and symptoms of potential delayed complications were discussed with the patient. Return to normal activities tomorrow. Written discharge instructions were provided to the patient. - High fiber diet. - Continue present medications. - Miralax 1 capful (17 grams) in 8 ounces of water PO daily for 5 days. - Await pathology results. - Refer to a surgeon at appointment to be scheduled. - Telephone GI clinic for pathology results in 1 week. - Return to primary care physician. Momo Smith MD Momo Smith MD 08/08/2020 10:12:12 AM Electronically signed by Momo Smith MD Number of Addenda: 0 Note Initiated On: 08/08/2020 8:49 AM Estimated Blood Loss: Estimated blood loss was minimal.
[2020-08-08 10:15] VITALS: BP 149/98
== END 2020-08-08 10:41 | disposition home or self-care (01) ==
LOC: M OPP 07:31
PROVIDERS: ATTEND Internal Medicine Gastroenterology
DX: Z12.11 Encounter for screening for malignant neoplasm of colon (principal); Z86.010 Personal history of colon polyps; Z80.0 Family history of malignant neoplasm of digestive organs; D12.6 Benign neoplasm of colon, unspecified; K57.30 Diverticulosis of large intestine without perforation or abscess without bleeding; K64.8 Other hemorrhoids; I49.9 Cardiac arrhythmia, unspecified; Z79.899 Other long term (current) drug therapy; Z88.8 Allergy status to other drugs, medicaments and biological substances; Z87.891 Personal history of nicotine dependence

== ENCOUNTER → 2020-09-25 | Outpatient (CLI) | payer SELFPAY | LOC: M LABSMTC 13:02 | PROVIDERS: ATTEND Pediatrics | DX: Z20.828 Contact with and (suspected) exposure to other viral communicable diseases (principal) ==

== ENCOUNTER → 2020-10-19 | Outpatient (CLI) | payer OTHER ==
[~2020-10-19] MED LIST changes: -OMEP-218; +OMEP-218 PO
[2020-10-19 11:14] LABS: APPEARANCE, URINE CLEAR (CLEAR); BACTERIA, URINE AUTO NEGATIVE (NEGATIVE); BILIRUBIN, URINE AUTO NEGATIVE (NEGATIVE); BLOOD, URINE BLOOD NEGATIVE (NEGATIVE); CALCIUM OXALATE CRYSTALS SMALL; COLOR, URINE YELLOW (YELLOW); GLUCOSE, URINE (UA) AUTO NEGATIVE (NEGATIVE); KETONE, URINE AUTO NEGATIVE (NEGATIVE); LEUKOCYTE ESTERASE, URINE AUTO NEGATIVE (NEGATIVE); MUCUS, URINE SMALL (NEGATIVE); NITRITE, URINE AUTO NEGATIVE (NEGATIVE); PROTEIN, URINE AUTO NEGATIVE (NEGATIVE); RBC, URINE AUTO 0 /HPF (0-3); SPECIFIC GRAVITY URINE AUTO 1.024 (1.002-1.035); SQUAMOUS EPITHELIAL CELL UR AU 0 /HPF (0-6); WBC, URINE AUTO 1 /HPF (0-3)
[2020-10-19 11:15] LABS: BASO % 0.6 % (0.0-1.0); EOS # 0.1 10^3/uL (0.0-0.5); EOS % 1.7 % (0.0-3.0); HEMATOCRIT 36.7 % (36.0-47.0); HEMOGLOBIN 12.1 g/dl (12.0-15.5); LYMPH # 1.3 10^3/uL (1.5-5.0); LYMPH % 36.9 % (24.0-44.0); MEAN CORPUSCULAR HEMOGLOBIN 29.4 pg (27.0-33.0); MEAN CORPUSCULAR VOLUME 89.1 fl (80.0-96.0); MONO # 0.3 10^3/uL (0.0-0.8); MONO % 8.1 % (0.0-5.0); NEUTROPHILS # 1.8 10^3/uL (1.5-8.5); NEUTROPHILS % 52.4 % (36.0-66.0); PLATELET COUNT, AUTOMATED 219 10^3/uL (150-450); RED BLOOD COUNT 4.12 10^6/uL (4.00-5.40); WHITE BLOOD COUNT 3.4 10^3/uL (4.0-10.0)
[2020-10-19 11:37] LABS: BLOOD UREA NITROGEN 17 MG/DL (7-18); CALCIUM LEVEL 8.7 MG/DL (8.8-10.2); CARBON DIOXIDE LEVEL 26 MEQ/L (21-32); CHLORIDE LEVEL 109 MEQ/L (98-107); CREATININE FOR GFR 0.74 MG/DL (0.55-1.30); GLOMERULAR FILTRATION RATE > 60.0 (>45); GLUCOSE, FASTING 118 MG/DL (70-100); POTASSIUM SERUM 3.8 MEQ/L (3.5-5.1); SODIUM LEVEL 142 MEQ/L (136-145)
== END ==
LOC: M LAB 10:18
PROVIDERS: ATTEND Nurse Practitioner Family
DX: Z01.818 Encounter for other preprocedural examination (principal)

== ENCOUNTER → 2020-10-19 | Outpatient (CLI) | payer OTHER ==
[~2020-10-19] MED LIST changes: +METR-265 PO; +NEOM500T PO
== END ==
LOC: M LABSMTC 11:25
PROVIDERS: ATTEND Anesthesiology
DX: Z01.812 Encounter for preprocedural laboratory examination (principal); Z20.828 Contact with and (suspected) exposure to other viral communicable diseases

== ENCOUNTER 2020-10-24 05:58 | Inpatient (IN) | payer OTHER ==
--- NOTE | 2020-10-23 22:34 | HPE ---
HISTORY AND PHYSICAL DATE OF ADMISSION: 10/24/2020 ADMITTING DIAGNOSIS: Non-endoscopically resectable adenomatous polyp of the ileocecal valve. HISTORY OF PRESENT ILLNESS: The patient is a 65-year-old woman who had undergone colonoscopy in October of 2018. A large flat polyp was identified involving the ileocecal valve. Biopsies revealed tubular adenoma. On August 082019 she had a repeat colonoscopy that again showed a polyp of the ileocecal valve. A resection was attempted and the resected tissue revealed tubular adenoma but the polyp was not completely removed. She is now referred for consideration of resection. The patient does complain of some abdominal pain primarily of the left upper quadrant when moving around physically. She also reports some right lower quadrant pain that occurs 20-30 minutes after eating. Her pains are not felt to be associated with her unresectable polyp. She is now admitted to undergo a robotic assisted resection of the right colon for removal of this polyp. ALLERGIES: 1. Keflex. 2. Darvon. MEDICATIONS: Medications at the time of admission include: 1. Omeprazole once daily. 2. Celexa daily. PAST MEDICAL HISTORY: The patient's past medical history is significant for: 1. Depression. 2. History of osteoporosis. 3. Gastroesophageal reflux disease. 4. Osteoarthritis. 5. History of renal stones. PAST SURGICAL HISTORY: The patient's past surgical history is significant for: 1. The patient has undergone an appendectomy in the distant past. 2. She has had a tubal ligation. 3. The patient underwent a hysterectomy. 4. She has had an open cholecystectomy in the distant past. 5. She has had two hernia repairs involving her right subcostal scar. Both of these involved placement of small pieces of mesh. 6. The patient has undergone knee replacement in May of 2017 and the second knee was replaced in August of 2017. 7. She has had a carpal tunnel release and bilateral cataract surgery. 8. She has had shoulder surgery on both sides. 9. She has had EGD and colonoscopy back in 2013 and then repeated in 2018 with a repeat colonoscopy here recently in July of 2020. 10. She has undergone removal of a kidney stone. FAMILY HISTORY: Father is for unknown causes and her mother is from metastatic lung cancer. SOCIAL HISTORY: The patient is a former smoker who quit 30 years ago. She denies any alcohol use. REVIEW OF SYSTEMS: The patient denies any significant weight change. She has had no fevers or chills. She denies any history of seizures, stroke or chronic severe headaches. She denies any chest pain or palpitations. She has no cough, wheezing or sputum production. She denies any current dysuria or hematuria. She does have some joint pains. PHYSICAL EXAMINATION: VITAL SIGNS: Recent vitals from an office visit show a blood pressure of 128/72, with a height of 62 inches and a weight of 74 kg, giving her a BMI of 30. GENERAL APPEARANCE: The patient is alert and oriented and cooperative. SKIN: Warm and dry. HEENT: Sclerae are anicteric. NECK: Supple without mass. HEART: Regular rate and rhythm. LUNGS: Clear to auscultation bilaterally. ABDOMEN: Thin and flat. She has several old scars including a right subcostal scar, a right lower quadrant scar and a lower abdominal scar. EXTREMITIES: Thin and she has palpable radial and pedal pulses. LABORATORY STUDIES: From October 19 include a CBC showing a white count of 3.4 with a left differential. She had a hemoglobin of 12, hematocrit 37 and a platelet count of 219,000. Chemistry profile showed normal electrolytes with a minimally elevated chloride at 109. BUN was 17 with a creatinine of 0.7 and her glucose was 118. Urinalysis showed no evidence of infection. Coronavirus nasopharyngeal swab was negative on the . IMPRESSION: 1. Adenomatous polyp of the ileocecal valve, not endoscopically resectable. 2. Gastroesophageal reflux disease. 3. Depression. 4. 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 5. Osteoarthritis. PLAN: The patient is being admitted on the 24 of October to undergo a resection for her polyp of the ileocecal valve region. She is to perform a full mechanical and antibiotic bowel preparation on the . She will present on the morning of the for surgery. She was counseled regarding the surgery to include indications, risks, and hospital benefits. Risks include but are not limited to bleeding, infection, scarring, adverse drug reaction, need for further surgery, injury of internal organ, anastomotic leak, and hernia. She had an opportunity to ask questions. She was counseled that the usual hospital stay would be approximately 3 days if all goes well. She desires to proceed with the surgery and will present as planned. LUDMILA
[~2020-10-24] VITALS: Ht 154.9 cm; Wt 74.9 kg
[2020-10-24] VITALS (7 sets, daily range): BP systolic 101–132; BP diastolic 53–80
[~2020-10-24 05:58] MED LIST changes: +ISOS1TAB35 PO; -ISOS30TA4 PO; +LR 1,000 ML IV ONE; -METR-265 PO; -NEOM500T PO
[2020-10-24] MEDS ORDERED: LIDOCAINE 1% MDV 20ML VIAL SQ PRN (06:00)
[2020-10-24] MEDS ORDERED: NEOM500T PO (06:45)
[2020-10-24] MEDS ORDERED: METR-265 PO (06:45)
[2020-10-24] MEDS ORDERED: BUPIVACAINE HCL 0.25% 30ML VIAL As Ordered ONE (07:13)
[2020-10-24] MEDS ORDERED: MIDAZOLAM INJ 2MG/2ML VIAL (J2250 PER 1MG) As Ordered ONE (07:16)
[2020-10-24] MEDS ORDERED: propofoL 200 MG/20 ML VIAL As Ordered ONE (07:16)
[2020-10-24] MEDS ORDERED: HYDROmorphone HCL 2 MG/ML 1ML VIAL (J1170) As Ordered ONE (07:16)
[2020-10-24] MEDS ORDERED: fentaNYL 100 MCG/2 ML INJECTION (J3010) As Ordered ONE ×2 (07:16→12:14)
[2020-10-24] MEDS ORDERED: ROCURONIUM BROMIDE 50 MG/5 ML VIAL As Ordered ONE ×2 (07:16→08:07)
[2020-10-24] MEDS ORDERED: ONDANSETRON 4MG/2ML VIAL As Ordered ONE (07:16)
[2020-10-24] MEDS ORDERED: dexameTHASONE 4 MG/ML 1ML VIAL (J1100 PER 1MG) As Ordered ONE (07:16)
[2020-10-24] MEDS ORDERED: LIDOCAINE 2% 100MG/5ML SDV (FOR ANES.) As Ordered ONE (07:16)
[2020-10-24] MEDS ORDERED: CIPROFLOXACIN 400 MG in IV 1 EA IV ONE ×2 (07:45→20:30)
[2020-10-24] MEDS ORDERED: GLYCOPYRROLATE INJ 0.2 MG/ML 2 ML VIAL As Ordered ONE (07:48)
[2020-10-24] MEDS ORDERED: ACETAMINOPHEN 1000MG 100ML IV BTL (OFIRMEV) (J0131 PER 10MG) As Ordered ONE (08:03)
[2020-10-24] MEDS ORDERED: SUGAMMADEX SODIUM 500 MG/5 ML VIAL (BRIDION) As Ordered ONE (08:07)
[2020-10-24] MEDS ORDERED: ePHEDrine SULFATE 25 MG/5 ML(5MG/ML) SYRINGE As Ordered ONE (08:08)
[2020-10-24] MEDS: fentaNYL 100 MCG/2 ML INJECTION (J3010) IV PRN ×4 (12:14→12:35)
[2020-10-24] MEDS ORDERED: oxyCODONE 5MG TAB As Ordered ONE (12:14)
[2020-10-24] MEDS: oxyCODONE 5MG TAB PO PRN ×2 (12:14→13:21)
[2020-10-24] MEDS ORDERED: ONDANSETRON 4MG/2ML VIAL IV PRN ×2 (12:15→12:30)
[2020-10-24] MEDS ORDERED: ACETAMINOPHEN TAB 650MG DOSE (2X325MG) PO PRN (12:15)
[2020-10-24] MEDS ORDERED: MORPHINE 2 MG/ML 1ML VIAL (J2270) IV PRN (12:15)
[2020-10-24] MEDS ORDERED: METOCLOPRAMIDE INJ 10MG/2ML VIAL (J2765 PER 1) IV PRN (12:30)
[2020-10-24] MEDS ORDERED: LR 1,000 ML IV SCH (12:30)
[2020-10-24] MEDS ORDERED: HYDROMORPHONE HCL 0.5 MG/ 0.5 ML SYRINGE (J1170 PER 1) IV PRN (12:30)
[2020-10-24] MEDS: LR 1,000 ML IV SCH (12:42)
[2020-10-24] MEDS ORDERED: metroNIDAZOLE 500 MG in IV 1 EA IV ONE (14:00)
[2020-10-24] MEDS: CitaloPRAM (CeleXA) 10 MG TABLET PO SCH (14:12)
[2020-10-24] MEDS: NORCO, ANEXSIA 5/325MG TABLET (HYDROcodone/ACETAMINOPHEN) PO PRN (18:33)
[2020-10-24] MEDS: ENOXAPARIN 40MG/0.4ML SYRINGE (J1650 PER 10MG) SC SCH (21:01)
[2020-10-25] MEDS: KETOROLAC 30 MG/ML 1ML VIAL IV PRN ×2 (00:17→18:22)
[2020-10-25 02:00] VITALS: BP 115/53
[2020-10-25] MEDS: LR 1,000 ML IV SCH (03:18)
[2020-10-25 06:00] VITALS: BP 118/52
[2020-10-25 06:07] LABS: BASO % 0.2 % (0.0-1.0); HEMATOCRIT 34.8 % (36.0-47.0); HEMOGLOBIN 10.8 g/dl (12.0-15.5); LYMPH # 0.7 10^3/uL (1.5-5.0); LYMPH % 14.3 % (24.0-44.0); MEAN CORPUSCULAR HEMOGLOBIN 29.3 pg (27.0-33.0); MEAN CORPUSCULAR VOLUME 94.6 fl (80.0-96.0); MONO # 0.4 10^3/uL (0.0-0.8); MONO % 8.3 % (0.0-5.0); NEUTROPHILS # 3.9 10^3/uL (1.5-8.5); NEUTROPHILS % 76.8 % (36.0-66.0); PLATELET COUNT, AUTOMATED 154 10^3/uL (150-450); RED BLOOD COUNT 3.68 10^6/uL (4.00-5.40)
[2020-10-25 06:40] LABS: BLOOD UREA NITROGEN 9 MG/DL (7-18); CALCIUM LEVEL 8.3 MG/DL (8.8-10.2); CARBON DIOXIDE LEVEL 27 MEQ/L (21-32); CHLORIDE LEVEL 105 MEQ/L (98-107); CREATININE FOR GFR 0.71 MG/DL (0.55-1.30); GLOMERULAR FILTRATION RATE > 60.0 (>45); GLUCOSE, FASTING 113 MG/DL (70-100); POTASSIUM SERUM 4.2 MEQ/L (3.5-5.1); SODIUM LEVEL 138 MEQ/L (136-145)
[2020-10-25] MEDS: CitaloPRAM (CeleXA) 10 MG TABLET PO SCH (07:23)
[2020-10-25] MEDS: NORCO, ANEXSIA 5/325MG TABLET (HYDROcodone/ACETAMINOPHEN) PO PRN (07:23)
[2020-10-25 14:00] VITALS: BP 115/52
--- NOTE | 2020-10-25 20:04 | IPN ---
PROGRESS NOTE DATE: 10/25/2020 HISTORY: The patient is postop day number one from a robotic-assisted laparoscopic right hemicolectomy for an adenomatous polyp of the ileocecal valve. The patient has done very well following surgery. She has been tolerating clear liquids without difficulty and voiding. Vital signs show that she has been afebrile since surgery. Her pulse is in the 50s. Blood pressure is excellent and her pulse oximetry is good on 3 liters of nasal cannula oxygen. Intake and output show that yesterday she had 2900 in with 320 only recorded out. Her urine output has picked up significantly today. PHYSICAL EXAM: The patient is sitting up in the bed crocheting when I came to see her. She denies any significant pain. Skin is warm and dry. Heart exam shows a regular rhythm. The lungs are clear. The abdomen is mildly protuberant. She has active bowel sounds. Her dressings are clean and dry. Laboratory studies today show a white count of 5, hemoglobin of 11, hematocrit 35, and a platelet count of 154,000. Differential count shows 77% neutrophils, 14% lymphocytes, and 8% monocytes. Chemistry profile shows normal electrolytes with a BUN of 9, creatinine 0.7, and a glucose of 113. IMPRESSION: The patient is doing very well one day postop from her right hemicolectomy. She has been tolerating clear liquids without difficulty and her urine output is certainly adequate today. PLAN: I will stop the patient's IV fluid. She will be advanced to a regular diet. She was counseled to take the diet as tolerated and not to push herself to eat more than she feels comfortable with. I will have the nurses remove one of her two remaining IVs. She is encouraged to be up ambulatory. I anticipate she will be ready for discharge in the next one to two days. LUDMILA
[2020-10-25] MEDS: ENOXAPARIN 40MG/0.4ML SYRINGE (J1650 PER 10MG) SC SCH (21:19)
[2020-10-25 22:00] VITALS: BP 117/54
[2020-10-26 02:00] VITALS: BP 127/59
[2020-10-26 06:00] VITALS: BP 127/58
--- NOTE | 2020-10-26 06:32 | RO ---
OPERATIVE NOTE DATE OF OPERATION: 10/24/2020 PREOPERATIVE DIAGNOSIS: Adenomatous polyp of the ileocecal valve. POSTOPERATIVE DIAGNOSIS: Adenomatous polyp of the ileocecal valve with abdominal adhesions. PROCEDURE PERFORMED: Robotic-assisted laparoscopic right hemicolectomy with lysis of adhesions. SURGEON: Phong Ortez MD SYSTEM ADMINISTRATION ADVISOR: Josiah Thomas DO - Dr. Thomas's assistance was essential for creation of the specimen extraction site with removal of the specimen and closure. ANESTHESIA: General. INDICATIONS FOR PROCEDURE: Patient is a 65-year-old woman who had undergone a colonoscopy and was found to have an adenomatous polyp of the ileocecal valve. This was not endoscopically resectable and she is now for a robotic-assisted laparoscopic right colon resection. OPERATIVE PROCEDURE: The patient was brought to the operating room and placed on the table in a supine position. TEDs and sequentials were utilized. She was placed under general endotracheal anesthesia. A Hummel catheter was inserted. The patient's abdomen was prepped and draped in a sterile fashion. Examination showed a slightly widened, long right subcostal scar. She also had a widened right lower quadrant paramedian scar noted. I elected to place the initial trocar in the left upper quadrant. Marcaine 0.25% was infiltrated at each of the trocar sites as needed. A short transverse incision was made high in the left upper quadrant and a Veress needle was inserted. After a positive hanging drop test, the abdomen was insufflation with carbon dioxide gas. When the abdomen was fully insufflated, the Veress needle was removed and an 8-mm robotic port was placed over a 5-mm scope and advanced through the abdominal wall without difficulty. Initial examination showed some adhesions to the anterior abdominal wall in the mid to upper abdomen. There were some adhesions of the omentum to the anterior abdominal wall in the lower abdomen along the midline. A somewhat air and fluid distended right colon was noted in the right upper quadrant. The liver was noted and appeared normal. The second port was placed in a supraumbilical site to avoid the adhesions higher in the abdomen. This was also an 8-mm port. This was subsequently converted to a 12-mm port. Through the 8-mm port, cauterizing scissors were inserted and the adhesions to the anterior abdominal wall were lysed. The patient was noted to have a small piece of prosthetic mesh placed on the inner surface of the anterior abdominal wall as the site for her adhesions. Once the adhesions had all been cleared, a third port was placed between the first and second ports that were placed in the left upper quadrant. A final port was placed in the right lower quadrant. The patient cart of the da Susan Xi robot was then rolled into position and the endoscope arm was docked to the port in the left mid upper abdomen. Targeting took place in the right upper quadrant. The additional robotic arms were then docked to the remaining ports. The SynchroSeal was placed in the high left upper quadrant. A fenestrated bipolar was placed in the supraumbilical site and in the right lower quadrant port, a grasping retractor was placed. I then moved to the control console to begin the robotic portion of the procedure. Initially, I inspected the right upper quadrant to better identify the terminal ileum and the ascending colon. The greater omentum was elevated off of the underlying small bowel and moved into the upper mid abdomen to better expose the underlying transverse colon. The dilated segment of colon identified high in the right upper quadrant proved to be the cecum and ascending colon, which was folded up into this section of the abdomen. This was pulled down into the right mid to lower abdomen. The junction of the terminal ileum to the cecum was clearly identified. The appendix was surgically absent. There were some adhesions in the subhepatic space consistent with her prior open cholecystectomy. These mostly tethered the proximal transverse colon to the undersurface of the liver. Several of these adhesions were lysed using the SynchroSeal device and then the superior attachments of the hepatic flexure were also freed to allow the hepatic flexure and proximal transverse colon to be mobilized inferiorly. I created an opening through the terminal ileal mesentery and transected the terminal ileum with a single firing of the 45-mm robotic stapler with a blue load. The proximal transverse colon and hepatic flexure were then further mobilized freeing them further to allow greater mobility. A site was selected for transection of the proximal transverse colon. An opening was created through the transverse colon mesentery with the SynchroSeal and the colon was transected with three loads of the 45-mm endoscopic stapler. The transverse mesocolon was then divided down to its base using the SynchroSeal. At this point, I returned to the area of the terminal ileum. The ileal mesentery was divided down to its base. Dissection then proceeded superiorly. The ileocolic vascular pedicle was identified. The fibrofatty tissues were opened and the vessels were thoroughly cauterized and divided with the SynchroSeal. Dissection then continued superiorly to connect the peritoneal opening from the terminal ileal portion of the dissection with that of the transverse colon dissection. The retroperitoneal duodenum was clearly identified and protected. The final attachments of the ascending colon were then divided posteriorly and the entire specimen was freed. This was rolled into the left side of the abdomen. The patient was tilted slightly to the left during the course of the procedure. The right upper quadrant was then carefully irrigated and inspected, and hemostasis was found to be excellent. I elected to proceed with an intracorporeal anastomosis. The end of the terminal ileum was brought into apposition with the proximal transverse colon. A single tacking suture was placed to approximate the end of the colon with a point on the terminal ileum approximately 6 cm from the stapled end. A second tacking suture of 2-0 Vicryl was placed at about the mid point of the proposed anastomosis. Cauterizing scissors were used to create a small colotomy in the transverse colon and a small enterotomy in the antimesenteric border of the terminal ileum. The anastomosis was created with a single firing of a 45-mm stapler with a blue load. Hemostasis was excellent. A marking suture was placed on one end of the residual opening. The anastomosis was completed with a running suture of 2-0 absorbable V-Loc. This was run from the superior end to the inferior and then continued backwards to the beginning, performing an oversewing of the initial closure with some seromuscular sutures. This completed a secure closure. The area of the anastomosis was irrigated and the irrigation was all removed. Final inspection showed a good anastomosis with excellent vascularity. There was no evidence of bleeding in the operative area. The robotic instruments were removed and the [employer] Susan patient cart was undocked and withdrawn. Using a standard laparoscope, the specimen was identified and grasped through the right lower quadrant port. The abdomen was then deflated. The 12-mm supraumbilical port was removed and a short midline incision was made centered on this port site. A small Xavier retractor was placed and the specimen was grasped through this and withdrawn. The specimen was a segment of colon with a small stub of attached terminal ileum measuring approximately 10-12 inches in length. This was sent to the pathology department in formalin. The Xavier retractor was withdrawn. The midline fascia was closed with interrupted simple sutures of #1 Vicryl. The subcutaneous tissues were closed loosely with several buried 3-0 Vicryl sutures. The skin incisions were then all closed with buried 4-0 Vicryl and Steri-Strips. The patient's Hummel catheter was removed in the operating room. She was awakened in the operating room, extubated and moved to the recovery room in stable condition. LUDMILA
[2020-10-26] MEDS: CitaloPRAM (CeleXA) 10 MG TABLET PO SCH (07:39)
[2020-10-26 10:00] VITALS: BP 128/55
--- NOTE | 2020-10-26 12:07 | IPN ---
PROGRESS NOTE DATE: 10/26/2020 SUBJECTIVE: The patient is now postop day #2 from a robotic-assisted laparoscopic right hemicolectomy for an adenomatous polyp of the ileocecal valve. Her pathology is still pending. She has been on a regular diet since yesterday and is tolerating this well. She has had several large loose bowel movements. Her urine output is good. PHYSICAL EXAMINATION: GENERAL: Patient is lying quietly in the hospital bed crocheting. She is alert and oriented. She appears comfortable. HEART: Regular rhythm. LUNGS: Clear. ABDOMEN: Mildly protuberant. She has active bowel sounds. The abdomen is soft and without any undue tenderness. Her incisions are all inspected and these are healing well with no sign of infection or hematoma. IMPRESSION: Patient is doing very well postop day #2. She is requesting to go home and I see no reason why this should not take place. PLAN: Patient will be discharged home on her usual home medications. She can take Tylenol as needed for pain. She was advised to call the office for any problems and to call on Friday, the 30 of October for a follow-up appointment in about two weeks. 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 She should avoid any strenuous activity for at least one month to let her incisions heal. LUDMILA
--- NOTE | 2020-11-09 14:43 | DSES ---
DISCHARGE SUMMARY DATE OF ADMISSION: 10/24/2020 DATE OF DISCHARGE: 10/26/2020 ADMITTING DIAGNOSIS: Non-endoscopically resectable adenomatous polyp of the ileocecal valve. HISTORY OF PRESENT ILLNESS: Patient is a 65-year-old woman who was found at colonoscopy in October of 2018 to have a large flat polyp involving the ileocecal valve. Biopsies revealed tubular adenoma. A repeat colonoscopy in July of 2020 showed the polyp persisted. A resection was attempted and tissue revealed tubular adenoma but the polyp was not completely removed. She was referred for consideration of resection. This was discussed with her in the office and she is now admitted to undergo a robotic assisted laparoscopic right colon resection for this persistent polyp. HOSPITAL COURSE: Patient had performed a full mechanical and antibiotic bowel preparation prior to admission. She was admitted on 10/24/2020 and was taken directly to the operating room where she underwent a robotic assisted laparoscopic right hemicolectomy with lysis of adhesions. She did very well following surgery. Her diet was started as clear liquids on the day of surgery and advanced to a regular diet by postoperative day #1. She tolerated this well and by postoperative day #2 she had very little discomfort and was tolerating her diet well. She had had several loose bowel movements by the morning of postoperative day #2. She desired to go home and seemed stable and so was discharged on 10/26/2020. Final pathology subsequently returned showing some residual adenomatous polyp at the ileocecal valve but there was also an underlying well differential neuroendocrine tumor extending to the muscularis propria. FINAL DIAGNOSES: 1. Well-differentiated neuroendocrine tumor grade 1. 2. Residual tubular adenoma of the ileocecal valve region. 3. History of osteoporosis. 4. Depression. 5. Gastroesophageal reflux disease. 6. Osteoarthritis. 7. History of renal stones. PROCEDURE PERFORMED: Robotic assisted laparoscopic right hemicolectomy with lysis of adhesions. DISPOSITION: The patient was discharged home on 10/26/2020. She was advised to avoid any strenuous physical activity or lifting greater than 20 pounds for a month. She was to followup with me in the office in 2 weeks. She could pursue light activity as tolerated. She could take a regular diet. She could shower as desired. She was to call the office for any problems. She was not provided any new prescriptions but was to resume her medications as before admission. LUDMILA
== END 2020-10-26 12:55 | disposition home or self-care (01) | DRG 331 ==
LOC: M OR 05:58 → M MS5PR 13:30
PROVIDERS: ADMIT Surgery; ATTEND Surgery
PROC: 0DN Gastrointestinal System, Release (ICD-10-PCS; 2020-10-24)
PROC: 0DNU4ZZ Release Omentum, Percutaneous Endoscopic Approach (ICD-10-PCS; 2020-10-24)
PROC: 8E0W4CZ Robotic Assisted Procedure of Trunk Region, Percutaneous Endoscopic Approach (ICD-10-PCS; 2020-10-24)
PROC: 0DTF4ZZ Resection of Right Large Intestine, Percutaneous Endoscopic Approach (ICD-10-PCS; principal; 2020-10-24 07:30)
DX: D12.0 Benign neoplasm of cecum (principal); F32.9 Major depressive disorder, single episode, unspecified; M81.0 Age-related osteoporosis without current pathological fracture; K21.9 Gastro-esophageal reflux disease without esophagitis; M19.90 Unspecified osteoarthritis, unspecified site; Z87.442 Personal history of urinary calculi; Z79.899 Other long term (current) drug therapy; E55.9 Vitamin D deficiency, unspecified; F43.23 Adjustment disorder with mixed anxiety and depressed mood; E78.5 Hyperlipidemia, unspecified; K66.0 Peritoneal adhesions (postprocedural) (postinfection)

== ENCOUNTER → 2020-12-18 | Outpatient (CLI) | payer OTHER ==
[~2020-12-18] MED LIST changes: +GASTROGRAFIN SOLUTION 30ML (Q9963) As Ordered ONE; +ISOVUE-370 76% 100ML VIAL As Ordered ONE; -LR 1,000 ML IV ONE; +METR-265 PO; +NEOM500T PO
--- NOTE | 2020-12-18 16:44 | REP ---
INDICATION: NEUROENDOCRINE TUMOR. COMPARISON: CT angio chest 01/02/2010, portable chest 05/17/2020 TECHNIQUE: Bolus 100 mL Isovue 370 scanning through the chest with coronal and sagittal reconstructions provided. FINDINGS: Curvilinear fibrotic changes in the superior lingular segment in the left upper lobe again seen in left mid lung zone peripherally and unchanged since the 15/08 study. Some minor apical pleuroparenchymal scarring on the left. No pleural effusion, pleural based mass, acute infiltrate or pneumothorax on image 43 there is a 2.8 mm nodule in the right upper lobe mid axillary line, not present in the 2010 study. Some minor superior segment right lower lobe subpleural fibrotic change is again noted. There is a 4.9 mm nodule anterior segment of the right upper lobe on image 28. This was present previously only in retrospect at about 2 mm. The heart size shows left atrial and ventricular enlargement with mild overall cardiomegaly. No pericardial thickening or effusion. The aorta is without aneurysm or dissection. No pathologic sized mediastinal or hilar adenopathy. The main, right and left pulmonary arteries are without filling defects. Those visualized lobar arteries are also unremarkable. There is no pathologic sized axillary, supraclavicular or hilar adenopathy. Bone windows show the sternum, manubrium, medial clavicles, visualized portions of scapula, humeral heads and ribs intact old posttraumatic changes to the left ribs are unchanged from the previous study visualized spine shows no compression deformity or destructive lesion. Small hiatal hernia is seen. Please see the abdominal CT this date for full discussion of the abdominal contents. IMPRESSION: 1. Few small pulmonary nodules in the right lung with 1 about 5 mm, previously 2 mm 10 years ago another new 1 about 3 mm, not previously seen. No other parenchymal nodules, mass or acute infiltrate. Some scattered areas of the parenchymal scarring. Some hyperinflation and emphysematous changes upper lung zones. No effusions. 2. Mild cardiomegaly with left atrial and ventricular enlargement no pericardial thickening or effusion. There is a small hiatal hernia. No aortic aneurysm or dissection. Visualized pulmonary arteries and mediastinal structures unremarkable. 3. Degenerative changes of the spine and old posttraumatic rib changes on the left all of this stable. <Electronically signed by Martinez Arguelles > 12/18/20 [id number]
--- NOTE | 2020-12-18 17:09 | REP ---
INDICATION: NEUROENDOCRINE TUMOR. COMPARISON: 05/17/2020 CT TECHNIQUE: Bolus of 100 mL Isovue 370 and oral Gastrografin mixture per our oral contrast protocol given with scanning through the abdomen pelvis and coronal and sagittal reconstructions provided. FINDINGS: CT abdomen: The lung bases are clear there is a small hiatal hernia. Stomach filled retained food and oral contrast. There is no gross hepatomegaly, splenomegaly, focal hepatic or splenic lesion nor adjacent ascites. Gallbladder surgically absent. Common duct is normal for post cholecystectomy appearance and without filling defect. The pancreas shows no mass, ductal dilatation, calcification, peripancreatic adenopathy or fluid. The aorta has a few calcifications but no aneurysm or dissection. No periaortic, retroperitoneal or mesenteric pathologic sized lymphadenopathy in the abdomen. Adrenal glands were normal the kidneys show symmetric function without obstruction, hydronephrosis, solid or cystic mass. No abnormal calcifications. Appears to be a right-sided ileocolic anastomosis prior partial right-sided colectomy. Oral contrast is seen throughout the small bowel loops without abnormal dilatation. There are a few clips and suture lines from anastomosis at the region of the hepatic flexure. No stricture. The prominent interposed colon between the anterior abdominal wall the right lobe of the liver is not present on the current study. I do not see inflammatory changes in the mesentery or about the liver and the anastomotic site shows no adenopathy or inflammatory change adjacent. Abdominal wall mesh and julian as on the previous study. There is now an healed supraumbilical incision. Moderate stool in the transverse colon, splenic flexure and left colon. Some diverticulosis distal left colon. The bone windows show no compression deformity or destructive lesion. There is some facet arthropathy lower lumbar spine. Visualized ribs are intact. CT pelvis: The sacrum, SI joints, pelvis and hips show no destructive lesion or fracture. There are some minimal degenerative changes. No ventral or inguinal hernia in the pelvis. No inguinal adenopathy or pelvic lymphadenopathy. There is no evidence of ascites in the deep pelvis. Diverticulosis of the distal left colon and sigmoid noted without diverticulitis, colitis, stricture or mass. The uterus absent. The vaginal cuff intact. The abdominal course of the ureters was unremarkable and there was no ureteral stone or dilatation. The bladder shows partial filling without wall thickening, mass or stone. Small bowel loops in the deep pelvis are fluid-filled and contrast filled but no inflammatory changes or distention/dilatation. IMPRESSION: 1. Interval right-sided partial colectomy with ileocolic anastomosis in the right upper quadrant at the hepatic flexure. I do not see residual mass or inflammatory change, adenopathy or ascites. Healed midline supraumbilical incision noted. 2. No abdominal or pelvic adenopathy, ascites or mass. The liver, spleen, adrenal glands, kidneys and pancreas were unremarkable. Small bowel loops not dilated. No ascites or free air. 3. Pelvis unremarkable except for some diverticulosis distal left colon and sigmoid. No diverticulitis or colitis. No pelvic mass or adenopathy. Bones intact. <Electronically signed by Martinez Arguelles > 12/18/20 [id number]
== END ==
LOC: M RAD 11:52
PROVIDERS: ATTEND Internal Medicine Medical Oncology
DX: C7A.8 Other malignant neuroendocrine tumors (principal)
CPT/HCPCS: 71260; 74177; Q9963; Q9967

== ENCOUNTER → 2021-01-12 | Outpatient (CLI) | payer OTHER ==
[~2021-01-12] MED LIST changes: -GASTROGRAFIN SOLUTION 30ML (Q9963) As Ordered ONE; -ISOVUE-370 76% 100ML VIAL As Ordered ONE
--- NOTE | 2021-01-12 17:52 | REP ---
INDICATION: LOW BACK PAIN. COMPARISON: Comparison lumbar spine radiographs are from 18 July 2011.. TECHNIQUE: Three views. FINDINGS: Lumbar vertebral body heights are preserved. Alignment is normal on lateral radiograph. There is some disc space narrowing at L2-3 L3-4 similar to the prior study. Disc calcification is seen at L2-3 and L3-4. No spondylolysis or spondylolisthesis is seen. There is osteoarthritic facet hypertrophy and sclerosis bilaterally at L3-4, L4-5, and to a lesser extent L5-S1. Sacrum and SI joints are intact. The facet hypertrophy changes are somewhat more prominent than on the 2011 study. There are surgical sutures and clips in the upper abdomen. Psoas margins are symmetric. IMPRESSION: Degenerative spondylosis changes. Osteoarthritic facet disease somewhat more pronounced than on the 2011 study. <Electronically signed by Gael Rose > 01/12/21 [id number]
--- NOTE | 2021-01-12 17:57 | REP ---
INDICATION: LOW BACK PAIN. COMPARISON: PA and lateral chest dated 11/05/2018. TECHNIQUE: There are three views. FINDINGS: Vertebral body heights and alignment are normal and unchanged. There is degenerative disc disease throughout the thoracic spine, unchanged. The pedicles are unremarkable. IMPRESSION: Degenerative disc disease throughout the thoracic spine without interval change. <Electronically signed by Josiah Klein > 01/12/21 [id number]
== END ==
LOC: M RAD 09:55
PROVIDERS: ATTEND Nurse Practitioner Family
DX: M47.896 Other spondylosis, lumbar region (principal); M54.5 Low back pain

== ENCOUNTER → 2021-01-31 | Outpatient (CLI) | payer OTHER | LOC: M LABSMTC 11:35 | PROVIDERS: ATTEND Anesthesiology | DX: Z01.812 Encounter for preprocedural laboratory examination (principal) ==

== ENCOUNTER 2021-02-05 09:06 | Day surgery (SDC) | payer OTHER ==
[~2021-02-05] VITALS: Ht 157.5 cm; Wt 75.3 kg
[~2021-02-05 09:06] MED LIST changes: +NS 1,000 ML IV ONE
[2021-02-05] MEDS ORDERED: propofoL 200 MG/20 ML VIAL As Ordered ONE (10:48)
[2021-02-05] MEDS ORDERED: LIDOCAINE 2% 100MG/5ML SDV (FOR ANES.) As Ordered ONE (10:48)
--- NOTE | 2021-02-05 11:08 | ROOR ---
Patient Name: Mireya Pak Procedure Date: 02/05/2021 10:24 AM Date of : 1955 Age: 65 Room: [facility] Gender: Female Note Status: Finalized Procedure: Upper GI endoscopy Indications: Epigastric abdominal pain Providers: Momo Smith MD Referring MD: Shahnaz Snowden NP Requesting Provider: Medicines: Monitored Anesthesia Care Complications: No immediate complications. Procedure: Pre-Anesthesia Assessment: - Prior to the procedure, a History and Physical was performed, and patient medications and allergies were reviewed. The patient is competent. The risks and benefits of the procedure and the sedation options and risks were discussed with the patient. All questions were answered and informed consent was obtained. Patient identification and proposed procedure were verified by the physician, the nurse and the anesthesiologist in the procedure room. Mental Status Examination: alert and oriented. CV Examination: normal. Prophylactic Antibiotics: The patient does not require prophylactic antibiotics. Prior Anticoagulants: The patient has taken no previous anticoagulant or antiplatelet agents. ASA Grade Assessment: II - A patient with mild systemic disease. After reviewing the risks and benefits, the patient was deemed in satisfactory condition to undergo the procedure. The anesthesia plan was to use monitored anesthesia care (MAC). Immediately prior to administration of medications, the patient was re-assessed for adequacy to receive sedatives. The heart rate, respiratory rate, oxygen saturations, blood pressure, adequacy of pulmonary ventilation, and response to care were monitored throughout the procedure. The physical status of the patient was re-assessed after the procedure. The Endoscope was introduced through the mouth, and advanced to the second part of duodenum. The upper GI endoscopy was accomplished without difficulty. The patient tolerated the procedure well. Findings: The examined esophagus was normal. Scattered mild inflammation characterized by erythema and granularity was found in the gastric antrum. Biopsies were taken with a cold forceps for Helicobacter pylori testing. Verification of patient identification for the specimen was done by the physician and nurse using the patient's name, date and medical record number. Estimated blood loss was minimal. The duodenal bulb and second portion of the duodenum were normal. Impression: - Normal esophagus. - Gastritis. Biopsied. - Normal duodenal bulb and second portion of the duodenum. Recommendation: - Patient has a contact number available for emergencies. The signs and symptoms of potential delayed complications were discussed with the patient. Return to normal activities tomorrow. Written discharge instructions were provided to the patient. - High fiber diet. - Continue present medications. - Await pathology results. - Telephone GI clinic for pathology results in 2 weeks. - Return to primary care physician. Procedure Code(s): --- Professional --- 64763, Esophagogastroduodenoscopy, flexible, transoral; with biopsy, single or multiple Diagnosis Code(s): --- Professional --- K29.70, Gastritis, unspecified, without bleeding R10.13, Epigastric pain CPT copyright 2019 [employer]. All rights reserved. The codes documented in this report are preliminary and upon surgical coder review may be revised to meet current compliance requirements. Momo Smith MD Momo Smith MD 02/05/2021 11:07:56 AM Electronically signed by Momo Smith MD Number of Addenda: 0 Note Initiated On: 02/05/2021 10:24 AM Estimated Blood Loss: Estimated blood loss was minimal.
--- NOTE | 2021-02-05 11:12 | ROOR ---
Patient Name: Mireya Pak Procedure Date: 02/05/2021 10:25 AM Date of : 1955 Age: 65 Room: [facility] Gender: Female Note Status: Finalized Procedure: Colonoscopy Indications: High risk colon cancer surveillance: Personal history of colonic polyps Providers: Momo Smith MD Referring MD: Shahnaz Snowden NP Requesting Provider: Medicines: Propofol per Anesthesia Complications: No immediate complications. Procedure: Pre-Anesthesia Assessment: - Prior to the procedure, a History and Physical was performed, and patient medications and allergies were reviewed. The patient is competent. The risks and benefits of the procedure and the sedation options and risks were discussed with the patient. All questions were answered and informed consent was obtained. Patient identification and proposed procedure were verified by the physician, the nurse and the anesthesiologist in the procedure room. CV Examination: normal. Prophylactic Antibiotics: The patient does not require prophylactic antibiotics. Prior Anticoagulants: The patient has taken no previous anticoagulant or antiplatelet agents. ASA Grade Assessment: II - A patient with mild systemic disease. After reviewing the risks and benefits, the patient was deemed in satisfactory condition to undergo the procedure. The anesthesia plan was to use monitored anesthesia care (MAC). Immediately prior to administration of medications, the patient was re-assessed for adequacy to receive sedatives. The heart rate, respiratory rate, oxygen saturations, blood pressure, adequacy of pulmonary ventilation, and response to care were monitored throughout the procedure. The physical status of the patient was re-assessed after the procedure. The Colonoscope was introduced through the anus and advanced to the ileocolonic anastomosis. The colonoscopy was performed without difficulty. The patient tolerated the procedure well. The quality of the bowel preparation was fair. The terminal ileum and the rectum were photographed. Scope insertion time was 2 minutes. Scope withdrawal time was 9 minutes. The total duration of the procedure was 11 minutes. Findings: The perianal and digital rectal examinations were normal. The kelsie-terminal ileum appeared normal. There was evidence of a prior functional end-to-end ileo-colonic anastomosis in the ascending colon. This was patent and was characterized by healthy appearing mucosa. The anastomosis was traversed. Multiple small and large-mouthed diverticula were found from sigmoid to transverse colon. There was no evidence of diverticular bleeding. Non-bleeding external and internal hemorrhoids were found during retroflexion. The hemorrhoids were medium-sized. A large amount of semi-liquid semi-solid stool was found from sigmoid to ascending colon, interfering with visualization. Lavage of the area was performed using a large amount of sterile water, resulting in clearance with fair visualization. Impression: - Preparation of the colon was fair. - The examined portion of the ileum was normal. - Patent functional end-to-end ileo-colonic anastomosis, characterized by healthy appearing mucosa. - Moderate diverticulosis from sigmoid to transverse colon. There was no evidence of diverticular bleeding. - Non-bleeding external and internal hemorrhoids. - Stool from sigmoid to ascending colon. - No specimens collected. Recommendation: - Patient has a contact number available for emergencies. The signs and symptoms of potential delayed complications were discussed with the patient. Return to normal activities tomorrow. Written discharge instructions were provided to the patient. - High fiber diet. - Continue present medications. - Await pathology results. - Repeat colonoscopy in 3 years for surveillance and due to personal history of colon polyps in past Colonoscopy. - Return to GI clinic in 3 years. - Return to primary care physician. Procedure Code(s): --- Professional --- 03083, Colonoscopy, flexible; diagnostic, including collection of specimen(s) by brushing or washing, when performed (separate procedure) Diagnosis Code(s): --- Professional --- Z86.010, Personal history of colonic polyps K64.8, Other hemorrhoids Z98.0, Intestinal bypass and anastomosis status K57.30, Diverticulosis of large intestine without perforation or abscess without bleeding CPT copyright 2019 [employer]. All rights reserved. The codes documented in this report are preliminary and upon host hostess review may be revised to meet current compliance requirements. Momo Smith MD Momo Smith MD 02/05/2021 11:12:08 AM Electronically signed by Momo Smith MD Number of Addenda: 0 Note Initiated On: 02/05/2021 10:25 AM Estimated Blood Loss: Estimated blood loss was minimal.
[2021-02-05 11:25] VITALS: BP 162/77
== END 2021-02-05 11:28 | disposition home or self-care (01) ==
LOC: M OPP 09:06
PROVIDERS: ATTEND Internal Medicine Gastroenterology
DX: K57.30 Diverticulosis of large intestine without perforation or abscess without bleeding (principal); K64.8 Other hemorrhoids; Z86.010 Personal history of colon polyps; Z09 Encounter for follow-up examination after completed treatment for conditions other than malignant neoplasm; Z98.0 Intestinal bypass and anastomosis status; K29.70 Gastritis, unspecified, without bleeding; R10.13 Epigastric pain; Z79.899 Other long term (current) drug therapy; Z88.1 Allergy status to other antibiotic agents; Z88.5 Allergy status to narcotic agent

== ENCOUNTER → 2021-04-03 | Outpatient (CLI) | payer OTHER ==
[~2021-04-03] MED LIST changes: +GASTROGRAFIN SOLUTION 30ML (Q9963) As Ordered ONE; +ISOVUE-370 76% 100ML VIAL As Ordered ONE; -NS 1,000 ML IV ONE
--- NOTE | 2021-04-04 06:10 | REP ---
INDICATION: NEUROENDROCRINE TUMOR. COMPARISON: 12/18/2020, 10/14/2018 TECHNIQUE: Axial contrast-enhanced images from the lung bases to the pubic symphysis using oral and 100 cc Isovue 370 intravenous contrast material. Delayed images of the abdomen along with coronal and sagittal reformations obtained. This CT examination was performed using the following dose reduction techniques: Automated exposure control, adjustment of mA and/or kv according to the patient's size, and the use of iterative reconstruction technique. FINDINGS: Liver, spleen, pancreas, bilateral adrenal glands and kidneys are normal. Evidence for prior cholecystectomy noted. Patient appears to be status post right hemicolectomy. Small and large bowel without obstruction or acute inflammatory process. Sigmoid diverticulosis noted without acute diverticulitis. Pelvis demonstrates normal bladder and evidence for prior hysterectomy. No ascites. No free air. No intraperitoneal or retroperitoneal adenopathy. Abdominal aorta and vasculature appear normal. Musculoskeletal structures are intact and without acute osseous abnormality. Anterior abdominal wall ventral hernia repair noted. IMPRESSION: No acute abdominopelvic pathology appreciated. No evidence for recurrence or metastatic disease. <Electronically signed by Suresh Hwang > 04/04/21 0606
--- NOTE | 2021-04-04 06:13 | REP ---
INDICATION: NEUROENDROCRINE TUMOR COMPARISON: 12/18/2020, 01/02/2010 TECHNIQUE: Axial contrast enhanced images from the thoracic inlet to the upper abdomen with coronal and sagittal reformations using 75 ml Isovue 370 intravenous contrast material. This CT examination was performed using the following dose reduction techniques: Automated exposure control, adjustment of mA and/or kv according to the patient's size, and use of iterative reconstruction technique. FINDINGS: Bilateral lung frye are well aerated and clear. Stable rounded area of scarring in the periphery of the left upper lobe and stable 3 mm noncalcified nodule in the anterior right upper lobe unchanged through 2009. No acute consolidation, new nodule or mass. No effusion. No pneumothorax. Tracheobronchial tree is patent. No axillary, hilar, or mediastinal adenopathy. Thoracic aorta, pulmonary vasculature, and heart/pericardium are normal. Surrounding musculoskeletal structures intact and without acute osseous abnormality. IMPRESSION: Normal stable contrast-enhanced chest CT. No acute mediastinal or pleuroparenchymal process. <Electronically signed by Suresh Hwang > 04/04/21 0609
== END ==
LOC: M RAD 11:15
PROVIDERS: ATTEND Internal Medicine Medical Oncology
DX: C7A.090 Malignant carcinoid tumor of the bronchus and lung (principal)
CPT/HCPCS: 71260; 74177; Q9963; Q9967

== ENCOUNTER → 2021-08-14 | Outpatient (CLI) | payer OTHER ==
[~2021-08-14] MED LIST changes: -GASTROGRAFIN SOLUTION 30ML (Q9963) As Ordered ONE; -ISOVUE-370 76% 100ML VIAL As Ordered ONE; +OMEP40CA4 PO; -OMEP40CA97 PO
--- NOTE | 2021-08-14 14:20 | REPMRS ---
Patient History The patient states she has not had a clinical breast exam in over a year. Patient has history of colorectal cancer at age 65. Family history of colorectal cancer in maternal grandfather. Moderna vaccine 01/29/21 right arm. 02/28/21 right arm. Patient states no breast complaints today. Patient has signed MRS History Sheet. Digital Woman Screen Mammo: August 14, 2021 - Exam #: [id number] Bilateral CC and MLO view(s) were taken. Technologist: RT Josef Prior study comparison: June 20, 2020, bilateral digital woman screen mammo performed at [facility]. September 01, 2016, bilateral digital mammo screening bilat, performed at [facility]. FINDINGS: There are scattered fibroglandular densities. Screening. Digital screening (2D) mammography was performed bilaterally in the CC and MLO projections. Additionally, breast tomosynthesis (3D mammography) was performed bilaterally in the CC and MLO projections. Todays exam was compared to the prior exam/exams. By history, the patient has no complaints of a palpable breast abnormality or other significant breast complaints. The breasts are unchanged in size and shape. There are no kelsie-soft tissue densities or spiculated masses. There is no internal architectural distortion. Once again, stable benign appearing calcifications are seen.There are no suspicious kelsie-calcific clusters. Skin thickening or nipple retraction is not present. IMPRESSION: BI-RADS Category 2- Benign Findings. There is no evidence of malignant alteration of the breasts. Followup examination recommended in one year. The Volpara volumetric breast density category is B, there are scattered areas of fibroglandular densities. This mamm[facility] FDA approved computer aided detection system for mammography. The lifetime Tyrer-Cuzick score is 4.5 % Negative x-ray reports should not delay surgical consultation if a dominant or clinically suspicious mass is present. Not all breast cancers can be identified by mammography. Therefore, we recommend that you continue to perform regular breast self-examination and physical examination and then promptly contact your physician of any concerns or changes. Adenosis and dense breasts may obscure an underlying neoplasm. Assessment: BI-RADS/ACR category 2 mammogram. Benign Findings. Recommendation Routine screening mammogram of both breasts in 1 year. Electronically Signed By: Lee Bach DO 08/14/21 0785
== END ==
LOC: M WHC 12:51
PROVIDERS: ATTEND Nurse Practitioner Family
DX: Z12.31 Encounter for screening mammogram for malignant neoplasm of breast (principal); M89.9 Disorder of bone, unspecified; Z85.038 Personal history of other malignant neoplasm of large intestine

== ENCOUNTER → 2021-08-28 | Outpatient (REF) | payer OTHER | LOC: M LAB REF 16:49 | PROVIDERS: ATTEND Physician Assistant Medical | DX: R50.9 Fever, unspecified (principal); R05.9 Cough, unspecified ==

== ENCOUNTER → 2022-02-21 | Outpatient (CLI) | payer OTHER ==
[~2022-02-21] MED LIST changes: +CITA40TA7 PO; +GASTROGRAFIN SOLUTION 30ML (Q9963) As Ordered ONE; +ISOVUE-370 76% 100ML VIAL As Ordered ONE; +OMEP-173 PO; -OMEP-218 PO; +OMEP40CA5 PO
== END ==
LOC: M RAD 14:40
PROVIDERS: ATTEND Internal Medicine Medical Oncology
DX: C7A.021 Malignant carcinoid tumor of the cecum (principal)
CPT/HCPCS: 71260; 74177; Q9963; Q9967

== ENCOUNTER → 2022-03-04 | Outpatient (CLI) | payer OTHER ==
[~2022-03-04] MED LIST changes: -GASTROGRAFIN SOLUTION 30ML (Q9963) As Ordered ONE; -ISOVUE-370 76% 100ML VIAL As Ordered ONE
[2022-03-04 09:45] LABS: BASO % 1.1 % (0.0-1.0); EOS # 0.1 10^3/uL (0.0-0.5); EOS % 3.9 % (0.0-3.0); HEMATOCRIT 38.9 % (36.0-47.0); HEMOGLOBIN 13.2 g/dl (12.0-15.5); LYMPH # 1.2 10^3/uL (1.5-5.0); LYMPH % 34.3 % (24.0-44.0); MEAN CORPUSCULAR HEMOGLOBIN 30.2 pg (27.0-33.0); MEAN CORPUSCULAR HGB CONC 33.9 g/dl (32.0-36.5); MONO # 0.3 10^3/uL (0.0-0.8); MONO % 7.6 % (2.0-8.0); NEUTROPHILS # 1.9 10^3/uL (1.5-8.5); NEUTROPHILS % 52.8 % (36.0-66.0); PLATELET COUNT, AUTOMATED 229 10^3/uL (150-450); RED BLOOD COUNT 4.37 10^6/uL (4.00-5.40); WHITE BLOOD COUNT 3.6 10^3/uL (4.0-10.0)
[2022-03-04 10:15] LABS: ALBUMIN 3.8 GM/DL (3.2-5.2); ALT/SGPT 18 U/L (12-78); BILIRUBIN,DIRECT 0.1 MG/DL (0.0-0.2); BILIRUBIN,TOTAL 0.4 MG/DL (0.2-1.0); BLOOD UREA NITROGEN 10 MG/DL (7-18); CALCIUM LEVEL 8.9 MG/DL (8.8-10.2); CARBON DIOXIDE LEVEL 27 MEQ/L (21-32); CHLORIDE LEVEL 108 MEQ/L (98-107); CREATININE FOR GFR 0.84 MG/DL (0.55-1.30); FERRITIN 85 NG/ML (8-252); GLOMERULAR FILTRATION RATE > 60.0 (>45); GLUCOSE, FASTING 110 MG/DL (70-100); IRON (FE) 71 UG/DL (50-170); PERCENT SATURATION 23.7 % (13.2-45.0); POTASSIUM SERUM 4.2 MEQ/L (3.5-5.1); SODIUM LEVEL 138 MEQ/L (136-145); TOTAL IRON BINDING CAPACITY 300 UG/DL (250-450); TOTAL PROTEIN 7.1 GM/DL (6.4-8.2)
== END ==
LOC: M LAB 09:09
PROVIDERS: ATTEND Nurse Practitioner Family
DX: K76.0 Fatty (change of) liver, not elsewhere classified (principal)

== ENCOUNTER → 2022-05-13 | Outpatient (CLI) | payer OTHER | LOC: M RAD 08:32 | PROVIDERS: ATTEND Internal Medicine Medical Oncology | DX: C7A.021 Malignant carcinoid tumor of the cecum (principal) | CPT/HCPCS: 78803; 78804; A9572 ==

== ENCOUNTER 2023-01-19 22:20 | Emergency (ER) | payer OTHER ==
[~2023-01-19] VITALS: Ht 156.2 cm; Wt 77.3 kg
[2023-01-19 23:43] LABS: BASO % 0.3 % (0.0-1.0); EOS % 0.2 % (0.0-3.0); HEMATOCRIT 42.9 % (36.0-47.0); HEMOGLOBIN 14.4 g/dl (12.0-15.5); LYMPH # 1.2 10^3/uL (1.5-5.0); LYMPH % 13.8 % (24.0-44.0); MEAN CORPUSCULAR HEMOGLOBIN 29.1 pg (27.0-33.0); MEAN CORPUSCULAR HGB CONC 33.6 g/dl (32.0-36.5); MEAN CORPUSCULAR VOLUME 86.7 fl (80.0-96.0); MONO # 0.7 10^3/uL (0.0-0.8); MONO % 7.6 % (2.0-8.0); NEUTROPHILS # 6.8 10^3/uL (1.5-8.5); NEUTROPHILS % 77.9 % (36.0-66.0); PLATELET COUNT, AUTOMATED 234 10^3/uL (150-450); RED BLOOD COUNT 4.95 10^6/uL (4.00-5.40); WHITE BLOOD COUNT 8.8 10^3/uL (4.0-10.0)
[2023-01-20 00:05] LABS: LIPASE 23 U/L (12-53)
[2023-01-20 00:10] LABS: ALBUMIN 3.6 G/DL (3.2-5.2); ALKALINE PHOSPHATASE 117 U/L (46-116); ALT/SGPT 18 U/L (7.0-40); AST/SGOT 17 U/L (<34); BILIRUBIN,DIRECT 0.2 MG/DL (<0.4); BILIRUBIN,TOTAL 0.9 MG/DL (0.3-1.2); BLOOD UREA NITROGEN 10 MG/DL (9-23); CALCIUM LEVEL 8.6 MG/DL (8.3-10.6); CARBON DIOXIDE LEVEL 25 MMOL/L (20-31); CHLORIDE LEVEL 103 MMOL/L (98-107); CREATININE FOR GFR 0.67 MG/DL (0.55-1.30); GLOMERULAR FILTRATION RATE > 60.0 (>45); GLUCOSE, FASTING 134 MG/DL (74-106); POTASSIUM SERUM 4.1 MMOL/L (3.5-5.1); SODIUM LEVEL 136 MMOL/L (136-145)
[2023-01-20 00:25] VITALS: BP 152/72
== END 2023-01-20 03:54 | disposition left against medical advice (07) ==
LOC: M ED 22:20
DX: Z53.21 Procedure and treatment not carried out due to patient leaving prior to being seen by health care provider (principal)

== ENCOUNTER → 2023-01-20 | Outpatient (CLI) | payer OTHER ==
[~2023-01-20] MED LIST changes: +GASTROGRAFIN SOLUTION 30ML As Ordered ONE; +ISOVUE-370 76% 100ML VIAL As Ordered ONE
== END ==
LOC: M RAD 11:14
PROVIDERS: ATTEND Nurse Practitioner Family
DX: K57.32 Diverticulitis of large intestine without perforation or abscess without bleeding (principal)
CPT/HCPCS: 74177; Q9963; Q9967

== ENCOUNTER → 2023-01-30 | Outpatient (REF) | payer OTHER ==
[~2023-01-30] MED LIST changes: -GASTROGRAFIN SOLUTION 30ML As Ordered ONE; -ISOVUE-370 76% 100ML VIAL As Ordered ONE
== END ==
LOC: M LAB REF 16:55
PROVIDERS: ATTEND Nurse Practitioner Family
DX: R10.30 Lower abdominal pain, unspecified (principal)

== ENCOUNTER → 2023-02-18 | Outpatient (CLI) | payer OTHER ==
[2023-02-18 16:15] LABS: BASO % 0.8 % (0.0-1.0); EOS # 0.1 10^3/uL (0.0-0.5); EOS % 1.4 % (0.0-3.0); HEMATOCRIT 40.6 % (36.0-47.0); HEMOGLOBIN 13.5 g/dl (12.0-15.5); LYMPH # 1.5 10^3/uL (1.5-5.0); LYMPH % 42.9 % (24.0-44.0); MEAN CORPUSCULAR HEMOGLOBIN 29.2 pg (27.0-33.0); MEAN CORPUSCULAR HGB CONC 33.3 g/dl (32.0-36.5); MEAN CORPUSCULAR VOLUME 87.7 fl (80.0-96.0); MONO # 0.3 10^3/uL (0.0-0.8); MONO % 7.1 % (2.0-8.0); NEUTROPHILS # 1.7 10^3/uL (1.5-8.5); NEUTROPHILS % 47.5 % (36.0-66.0); PLATELET COUNT, AUTOMATED 222 10^3/uL (150-450); RED BLOOD COUNT 4.63 10^6/uL (4.00-5.40); WHITE BLOOD COUNT 3.5 10^3/uL (4.0-10.0)
[2023-02-18 16:41] LABS: ALBUMIN 3.6 G/DL (3.2-5.2); ALKALINE PHOSPHATASE 92 U/L (46-116); ALT/SGPT 18 U/L (7.0-40); AST/SGOT 18 U/L (<34); BILIRUBIN,TOTAL 0.5 MG/DL (0.3-1.2); BLOOD UREA NITROGEN 13 MG/DL (9-23); CALCIUM LEVEL 9.3 MG/DL (8.3-10.6); CARBON DIOXIDE LEVEL 26 MMOL/L (20-31); CHLORIDE LEVEL 106 MMOL/L (98-107); CREATININE FOR GFR 0.68 MG/DL (0.55-1.30); GLOMERULAR FILTRATION RATE > 60.0 (>45); GLUCOSE, FASTING 84 MG/DL (74-106); SODIUM LEVEL 138 MMOL/L (136-145); TOTAL PROTEIN 7.2 G/DL (5.7-8.2)
== END ==
LOC: M LAB 15:35
PROVIDERS: ATTEND Internal Medicine Medical Oncology
DX: C18.0 Malignant neoplasm of cecum (principal)

== ENCOUNTER → 2023-02-21 | Outpatient (CLI) | payer OTHER ==
[~2023-02-21] MED LIST changes: +GASTROGRAFIN SOLUTION 30ML As Ordered ONE; +ISOVUE-370 76% 100ML VIAL As Ordered ONE; +NOXI1TAB PO
== END ==
LOC: M RAD 15:03
PROVIDERS: ATTEND Internal Medicine Medical Oncology
DX: C18.0 Malignant neoplasm of cecum (principal); Z90.49 Acquired absence of other specified parts of digestive tract; K57.90 Diverticulosis of intestine, part unspecified, without perforation or abscess without bleeding; R91.1 Solitary pulmonary nodule; I70.0 Atherosclerosis of aorta; K44.9 Diaphragmatic hernia without obstruction or gangrene
CPT/HCPCS: 71260; 74177; Q9963; Q9967

== ENCOUNTER → 2023-09-03 | Outpatient (CLI) | payer OTHER ==
[~2023-09-03] MED LIST changes: -GASTROGRAFIN SOLUTION 30ML As Ordered ONE; +ISOVUE-300 61% 100ML VIAL As Ordered ONE; -ISOVUE-370 76% 100ML VIAL As Ordered ONE; +LIDOCAINE 1% MDV 20ML VIAL As Ordered ONE; +LINZ145C PO; +methylPREDNISolone SUSP 40MG/ML 1ML VIAL (DEPO MEDROL) As Ordered ONE
== END ==
LOC: M RAD 12:47
PROVIDERS: ATTEND Physician Assistant Surgical
DX: M16.0 Bilateral primary osteoarthritis of hip (principal)
CPT/HCPCS: 20610; 77002; J1030; Q9967

== ENCOUNTER → 2023-10-30 | Outpatient (CLI) | payer OTHER ==
[~2023-10-30] MED LIST changes: +GASTROGRAFIN SOLUTION 30ML As Ordered ONE; -ISOVUE-300 61% 100ML VIAL As Ordered ONE; +ISOVUE-370 76% 100ML VIAL As Ordered ONE; -LIDOCAINE 1% MDV 20ML VIAL As Ordered ONE; -methylPREDNISolone SUSP 40MG/ML 1ML VIAL (DEPO MEDROL) As Ordered ONE
== END ==
LOC: M RAD 12:45
PROVIDERS: ATTEND Internal Medicine Medical Oncology
DX: D3A.021 Benign carcinoid tumor of the cecum (principal)
CPT/HCPCS: 71260; 74177; Q9963; Q9967

== ENCOUNTER → 2024-11-11 | Outpatient (CLI) | payer MEDICARE, OTHER ==
[~2024-11-11] MED LIST changes: -CELE50CA PO; +CELE50CA17 PO; -GASTROGRAFIN SOLUTION 30ML As Ordered ONE
== END ==
LOC: M RAD 13:57
PROVIDERS: ATTEND Internal Medicine Medical Oncology
DX: C7A.8 Other malignant neuroendocrine tumors (principal); Z90.49 Acquired absence of other specified parts of digestive tract
CPT/HCPCS: 71260; 74177; Q9967

== ENCOUNTER → 2024-11-23 | Outpatient (REF) | payer MEDICARE, OTHER ==
[~2024-11-23] MED LIST changes: -ISOVUE-370 76% 100ML VIAL As Ordered ONE
[2024-11-23 17:22] LABS: CHOLESTEROL RISK RATIO 3.13 (<5); LDL CHOLESTEROL 101.8 MG/DL (<100); MAGNESIUM LEVEL 1.7 MG/DL (1.8-2.4)
[2024-11-23 17:24] LABS: THYROID STIMULATING HORMONE 4.335 uIU/ML (0.55-4.78)
[2024-11-23 17:53] LABS: HEMOGLOBIN A1c 5.3 % (4.0-6.0)
== END ==
LOC: M LAB REF 16:34
PROVIDERS: ATTEND Nurse Practitioner Family
DX: E66.3 Overweight (principal); R41.3 Other amnesia; Z13.6 Encounter for screening for cardiovascular disorders

== ENCOUNTER → 2025-02-02 | Outpatient (CLI) | payer MEDICARE, OTHER | LOC: M WHC 12:39 | PROVIDERS: ATTEND Nurse Practitioner Family | DX: Z12.31 Encounter for screening mammogram for malignant neoplasm of breast (principal); M81.0 Age-related osteoporosis without current pathological fracture ==

== ENCOUNTER → 2025-05-16 | Outpatient (CLI) | payer MEDICARE, OTHER ==
[~2025-05-16] MED LIST changes: +ALEN70TA82; +BACTDSTA; -FLOM0.4C39 PO; +HYDR-3713 PO; +ISOS-18 PO; -ISOS30TAB PO; +ISOVUE-370 76% 100 ML VIAL ONE; +MAGN400T35; +TAMS-18 PO
== END ==
LOC: M PLAIMG 08:42
PROVIDERS: ATTEND Internal Medicine Medical Oncology
DX: Z85.030 Personal history of malignant carcinoid tumor of large intestine (principal); K76.0 Fatty (change of) liver, not elsewhere classified; Z90.49 Acquired absence of other specified parts of digestive tract; K57.30 Diverticulosis of large intestine without perforation or abscess without bleeding; R91.8 Other nonspecific abnormal finding of lung field
CPT/HCPCS: 71260; 74177; Q9967